=== PATIENT | female | born 1965 | race Caucasian/White ===

== ENCOUNTER 2018-06-01 16:07 | Inpatient (IN) | payer OTHER ==
--- OUTSIDE RECORDS SUMMARY | 2018-06-01 16:15 | XMS REPORT | Clinical Summary ---
:1965 Author Organization [facility] Address [address] [place] [address] Care Team Providers Name Role Phone Lobo Hair MD Primary Care Provider Allergies Active Allergy Reactions Severity Noted Date Comments Hydromorphone (Bulk) Hives 09/13/2015 Infliximab Other (See Comments) 09/13/2015 Sever high blood pressure Medications Not on file Active Problems Problem Noted Date Elevated liver enzymes 09/13/2015 Last Assessment & Plan: Review of laboratory data suggest hepatocellular pattern of liver injury since 2012, also patient reports they have been abnormal before 2012 as well. Comprehensive work up for other etiology of elevated liver enzymes positive for ITZ (1:40) and ASCA (31.9). Negative AMA, ASMA, ceruloplasmin, ferritin, alpha-1 antitrypsin, LKM- 1 and hepattis. Positive ITZ and history of crohn's diseases raises possibility of autoimmune hepatitis. However liver biopsy from 2013 according to patient history showed fatty liver without evidence of AIH. We will request liver biopsy and review in pathology conference. Normal ALP and MRCP are against PSC/PBC. Likely etiology for elevated liver enzyme is combine fatty liver and possible drug induced liver injury. It will be difficult to predict which medication causing DILI. Currently recommend to continue all crohn's medication. We will repeat comprehensive lab work today. Crohn disease 09/13/2015 Last Assessment & Plan: She is under care of Dr. Shah. Currently on Entyvio every 8 week, 6-MP 50 mg daily and Prednisone as needed at the time of flare. Diabetes mellitus type 2, uncomplicated 09/13/2015 Last Assessment & Plan: Diabetes is a risk factor for fatty liver diseases. We discussed strict risk factor modification. Continue current care of plan and PCP follow up. Hypertension 09/13/2015 Last Assessment & Plan: BP elevated. We recommend to follow up with PCP. Immunity status testing 09/13/2015 Last Assessment & Plan: All patients with chronic liver disease, regardless of etiology, should be immunized to prevent hepatitis A and hepatitis B if they are not already immune. We will test for immunity to both viruses - [facility] will follow. Screening for cancer 09/13/2015 Last Assessment & Plan: Colonoscopy 2013, according to patient showed patchy inflammation. Continue follow up with Dr. Shah for screening colonoscopy. Continue well woman exam. Social History Tobacco Use Types Packs/Day Years Used Date Never Assessed Sex Assigned at Date Recorded Not on file Job Start Date Occupation Industry Not on file Not on file Not on file Travel History Travel Start Travel End No recent travel history available. Last Filed Vital Signs Not on file Plan of Treatment Health Maintenance Due Date Last Done Comments INFLUENZA VACCINE 02/23/2018 Results Not on fileafter 05/31/2017 Insurance Payer Benefit Plan / Group Subscriber ID Type Phone Address [employer] OPEN ACCESS HMO NAP xxxxxxxxxx HMO/POS [phone] [id number] (Work)
[2018-06-01] MEDS ORDERED: D50W 25 GM/50 ML SYRINGE IV PRN (16:29)
[2018-06-01] MEDS ORDERED: GLUCAGON 1 MG/VIAL IM PRN (16:29)
[2018-06-01] MEDS: INSULIN -REGULAR HUMAN 50 UNIT/0.5 ML ML SQ SCH ×2 (16:30→21:54)
[2018-06-01 17:12] LABS: Absolute Lymphocytes (CBC) 2.9 K/uL (0.7-4.9); Absolute Monocytes 0.5 K/uL (0.1-1.3); Absolute Neutrophil 7.2 K/uL (1.8-8.0); Basophils % 0.5 % (0-1.3); Eosinophils % 1.6 % (0-4.4); Hematocrit 46.7 % (36.0-45.0); Lymphocytes % 26.9 % (15.3-44.8); MPV 9.2 fL (7.6-11.3); Monocytes % 4.4 % (3.3-12.3); RBC Red Blood Cell Count 5.29 M/uL (3.86-4.86)
[2018-06-01 17:30] LABS: Albumin 4.2 g/dL (3.4-5.0); Bilirubin Total 0.5 mg/dL (0.2-1.0); Magnesium 2.5 mg/dL (1.8-2.4); Potassium 3.9 mmol/L (3.5-5.1); Protein, Total 8.3 g/dL (6.4-8.2)
[2018-06-01 17:33] LABS: Thyroid Stimulating Hormone 5.54 uIU/mL (0.360-3.740)
[2018-06-01] MEDS: NA CHLORIDE 0.9% 1,000 ML IV SCH (17:55)
[2018-06-01] MEDS: FENTANYL CITR 100 MCG/2 ML IV PRN ×2 (18:00→21:54)
[2018-06-01] MEDS: METHYLPREDNISOLONE 125 MG INJ IV SCH ×2 (18:02→23:18)
[2018-06-01] MEDS: PROMETHAZINE 25 MG/ML VIAL IV PRN ×2 (18:05→21:54)
[2018-06-01] MEDS: METRONIDAZOLE 500mg IVPB 500 MG/100 ML BAG IV SCH (18:12)
[2018-06-01] MEDS: ENOXAPARIN 40 MG/0.4 ML SQ SCH (18:18)
[2018-06-01] MEDS: Levofloxacin500mg IV 500 MG/100 ML BAG IV SCH (19:04)
[2018-06-01 19:50] VITALS: BMI 27.3
[2018-06-01] MEDS ORDERED: POTASSIUM 25 MEQ EFFERV TAB PO ONE (19:57)
[2018-06-01] MEDS: METOPROLOL TAR 50 MG TAB PO SCH (23:18)
[2018-06-02 00:04] LABS: Urine Appearance CLEAR; Urine Bilirubin NEGATIVE (NEG); Urine Blood NEGATIVE (NEG); Urine Color YELLOW; Urine Glucose 3+ (NEG); Urine Protein NEGATIVE (NEG); Urine Specific Gravity >=1.030 (1.005-1.030); Urine pH 5.5 (5.0-7.0)
[2018-06-02 00:18] LABS: Urine Microscopic Reflex NO UMIC
[2018-06-02] MEDS: METRONIDAZOLE 500mg IVPB 500 MG/100 ML BAG IV SCH ×3 (00:54→17:19)
[2018-06-02] MEDS: FENTANYL CITR 100 MCG/2 ML IV PRN ×2 (02:33→06:00)
[2018-06-02] MEDS: PROMETHAZINE 25 MG/ML VIAL IV PRN ×5 (02:33→20:42)
[2018-06-02] MEDS: NA CHLORIDE 0.9% 1,000 ML IV SCH ×2 (05:57→19:40)
[2018-06-02] MEDS: METOPROLOL TAR 50 MG TAB PO SCH ×2 (05:59→17:55)
[2018-06-02] MEDS: METHYLPREDNISOLONE 125 MG INJ IV SCH ×3 (06:00→17:54)
[2018-06-02 06:48] LABS: BUN Blood Urea Nitrogen 16 mg/dL (7-18); Bicarbonate 23 mmol/L (21-32); Glucose Level 136 mg/dL (74-106); Potassium 4.1 mmol/L (3.5-5.1); Sodium Level 141 mmol/L (136-145)
[2018-06-02] MEDS: INSULIN -REGULAR HUMAN 50 UNIT/0.5 ML ML SQ SCH ×4 (07:30→21:54)
[2018-06-02] MEDS ORDERED: INFLUENZA VACCINE (for 3y+) 0.5 ML DOSE IMVAC ONE (08:00)
[2018-06-02] MEDS ORDERED: PNEUMOCOCCAL VACCINE 0.5 ML IMVAC ONE (08:00)
[2018-06-02] MEDS: MEPERIDINE HCL 25 MG/0.5 ML IV PRN ×3 (10:08→20:43)
[2018-06-02] MEDS: LOSARTAN POTASSIUM 50 MG TABLET PO SCH (10:09)
--- NOTE | 2018-06-02 15:04 | RAD REPORT ---
EXAM DESCRIPTION: CT - Abdomen Pelvis Wo Contrast - 06/02/2018 2:00 pm CLINICAL HISTORY: Abdominal pain COMPARISON: 2016 TECHNIQUE: Computed axial tomography of the abdomen and pelvis was obtained. IV was not requested. O ral contrast was given. Coronal reconstructions performed. All CT scans are performed using dose optimization technique as appropriate and may include automated exposure control or mA/KV adjustment according to patient size. FINDINGS: The evaluation of solid organs and vessels is limited secondary to the lack of contrast a dministration. Fatty liver. Gallbladder is been removed The Spleen, pancreas, adrenals and kidneys appear grossly normal. There is no evidence of diverticulitis/colitis. The bowel caliber and wall thickness appears normal A tiny umbilical hernia IMPRESSION: No acute abnormality is displayed.
[2018-06-02] MEDS: Levofloxacin500mg IV 500 MG/100 ML BAG IV SCH (17:19)
[2018-06-02] MEDS: ENOXAPARIN 40 MG/0.4 ML SQ SCH (17:19)
[2018-06-02] MEDS: AMITRIPTYLINE 50 MG TAB PO SCH (20:44)
[2018-06-03] MEDS: NA CHLORIDE 0.9% 1,000 ML IV SCH ×3 (00:19→22:20)
[2018-06-03] MEDS: METHYLPREDNISOLONE 125 MG INJ IV SCH ×4 (00:19→17:51)
[2018-06-03] MEDS: METRONIDAZOLE 500mg IVPB 500 MG/100 ML BAG IV SCH ×3 (00:26→17:37)
[2018-06-03] MEDS: PROMETHAZINE 25 MG/ML VIAL IV PRN ×5 (02:51→20:24)
[2018-06-03] MEDS: MEPERIDINE HCL 25 MG/0.5 ML IV PRN ×5 (02:51→20:25)
--- NOTE | 2018-06-03 02:59 | PN ---
Date of Progress Note: 06/02/2018 Subjective: The patient was seen this morning for followup. She is feeling a little bit better as f ar as pain is concerned. No new complaints or problems reported. Physical Examination: Vital Signs: Reviewed. HEENT: Unremarkable. Lungs: Clear to auscultation. Heart: Sounds normal. Abdomen: Soft. Bowel sounds normal. No distention. Tenderness present, but slightly better today than yesterday. Guarding is slightly better today than yesterday. Laboratory Data: Sodium 141, potassium 4.1, chloride 107, bicarb 23, BUN 16, creatinine 0.66, and gl ucose 136. CAT scan of abdomen and pelvis shows no acute abnormality. Impression: 1.Crohn disease, with acute exacerbation. 2.Hypertension. 3.Hyperlipidemia. 4.Diabetes mellitus. 5.Abnormal liver function tests. 6.Depression. Plan: We will continue current medication. Continue IV antibiotic and IV steroid. Follow up with Liseth Shah. I will see her tomorrow for followup. Continue current clear liquid diet. CASPER/MODL Voice ID: [id number] Report ID: [id number]
[2018-06-03] MEDS: METOPROLOL TAR 50 MG TAB PO SCH ×2 (06:18→17:38)
--- NOTE | 2018-06-03 07:35 | HP ---
Date of Admission: 06/01/2018 Chief Complaint: Abdominal pain, vomiting, diarrhea. History Of Present Illness: This is a 53-year-old pleasant female patient who has Crohn disease and from time to time she has exacerbation of this Crohn disease. She is under care of Dr. Shah for and this exacerbation problem started almost 3-4 weeks ago and she has been seeing Dr. Shah for that. Her symptoms include abdominal pain, nausea, vomiting, diarrhea. The patient reports that she has taken antibiotic which is Cipro and metronidazole as well as oral prednisone and unfortunately s he has not improved with any of these medications and treatment provided to her, in fact her symptoms have gotten worse, and in last few days, she has not been able to eat or drink anything and has not been able to keep any medications down in her stomach. Dr. Shah called me today with all this info rmation and requested if we can admit her to hospital directly and I saw her at office and decision w as made to admit her to the hospital. Medications: List reviewed. Review of Systems: GI: As mentioned above. All other systems reviewed and negative. Allergies: SHE IS ALLERGIC TO DILAUDID, MORPHINE AND REMICADE. Past Surgical History: Cholecystectomy. Social History: Negative for smoking or alcohol use. Family History: Significant for hypertension, skin cancer, hyperlipidemia. Past Medical History: Significant for Crohn disease, hypertension, hyperlipidemia, abnormal liver fu nction test, inflammatory arthropathy associated with Crohn disease and type 2 diabetes mellitus. Physical Examination: VITAL SIGNS: When she was admitted, her initial vital signs, temperature 98, pulse 112, respiratory rate 18, blood pressure 171/128. Height 5 feet 7 inches, weight 175 pounds. General: The patient appears acutely ill, not in any distress, appears weaker than normal, but no re spiratory distress. HEENT: Head atraumatic, normocephalic. Conjunctivae nonerythematous. Sclerae white. Mouth, no thr ush or edema noted. Ears/Nose, no mass, lesion, discharge noted. Neck: Supple. No JVD, lymph nodes, bruit, thyromegaly noted. Lungs: Bilateral good equal air entry. Clear to auscultation. No rhonchi. No rales. Heart: Normal heart sounds, no murmur or gallop. Abdomen: Soft. Presence of guarding. No rebound tenderness. Presence of diffuse abdominal tendern ess. Bowel sounds present. No hepatosplenomegaly. No bruit. Extremities: No leg edema. No calf tenderness. Skin: No rash, ulcer, cellulitis. Lymphatics: No lymph node enlargement in neck, supraclavicular, infraclavicular region. Neuro: No focal neurological deficit. Chest: Unremarkable. External Genitalia: Deferred. Rectal: Deferred. Laboratory Data: White count 10.9, hemoglobin 15.8, and platelets of 335. Sodium 141, potassium 3.9 , chloride 107, bicarb 25, BUN 13, creatinine 0.74, glucose 127. SGOT 45, SGPT 110, alkaline phospha tase 116. TSH 5.54. Urinalysis negative. Impression: 1.Crohn disease, acute exacerbation. 2.Hypertension. 3.Abnormal liver function test. 4.Hyperlipidemia. 5.Diabetes mellitus. 6.Depression. Plan: Admit the patient to hospital for further evaluation and management of this problem. The inocente ent is appropriate for inpatient and is expected to spend 2 midnights in hospital. We will continue her home medications per order. Diabetes will be managed with sliding scale insulin. We will leave her on clear liquid diet. Tomorrow, we will get a CAT scan of abdomen done per recommendation from Liseth Shah, and as per my discussion with him, we will go ahead and give IV antibiotics Levaquin and m etronidazole and IV steroid. Pain medication and other symptomatic treatment will be provided per or jose. We will give DVT prophylaxis using Lovenox. We will see her tomorrow for followup. Details an d plan of treatment discussed with her. We will consult Dr. Shah from [facility]. CASPER/MODL Voice ID: [id number]
[2018-06-03] MEDS: INSULIN -REGULAR HUMAN 50 UNIT/0.5 ML ML SQ SCH ×4 (10:25→20:53)
[2018-06-03] MEDS: LOSARTAN POTASSIUM 50 MG TABLET PO SCH (10:26)
[2018-06-03] MEDS: ENOXAPARIN 40 MG/0.4 ML SQ SCH (17:38)
[2018-06-03] MEDS: Levofloxacin500mg IV 500 MG/100 ML BAG IV SCH (17:38)
[2018-06-03] MEDS: AMITRIPTYLINE 50 MG TAB PO SCH (20:24)
[2018-06-04] MEDS: METRONIDAZOLE 500mg IVPB 500 MG/100 ML BAG IV SCH ×3 (00:38→18:09)
[2018-06-04] MEDS: METHYLPREDNISOLONE 125 MG INJ IV SCH ×3 (00:38→11:38)
[2018-06-04] MEDS: MEPERIDINE HCL 25 MG/0.5 ML IV PRN ×2 (01:35→05:41)
[2018-06-04] MEDS: PROMETHAZINE 25 MG/ML VIAL IV PRN ×5 (01:36→20:20)
--- NOTE | 2018-06-04 01:47 | PN ---
Date of Progress Note: 06/03/2018 Subjective: The patient was seen this morning for followup. She is feeling overall better. Abdominal pain is better and pain medication which is Demerol is helping her with her pain and does not have any side effect. She had 2 episodes of vomiting and 2 episodes of diarrhea since I saw her yesterday morning. Denies any bleeding. Objective: Vital Signs: Reviewed. HEENT: Unremarkable. Lungs: Clear to auscultation. Heart: Sounds normal. Abdomen: Soft. Bowel sounds normal. No guarding, rigidity, distention, but presence of tenderness diffuse all over the abdomen which is somewhat better today than yesterday. No rebound tenderness Extremity: No leg edema. Impression: 1. Crohn's disease, with acute exacerbation. 2. Hypertension. 3. Diabetes mellitus. Plan: We will continue current antibiotic, steroid, pain medications per order. The patient is tolerating clear liquid diet well. We will advance it to soft diet. I will see her tomorrow for followup. Possible discharge to go home in next couple of days. Ambulation was encouraged. CASPER/MODTalya Voice ID: [id number] Report ID: [id number] [place]
[2018-06-04] MEDS: METOPROLOL TAR 50 MG TAB PO SCH ×2 (05:31→18:22)
[2018-06-04] MEDS: NA CHLORIDE 0.9% 1,000 ML IV SCH ×3 (05:48→20:20)
[2018-06-04] MEDS: INSULIN -REGULAR HUMAN 50 UNIT/0.5 ML ML SQ SCH ×4 (08:10→20:22)
[2018-06-04] MEDS: LOSARTAN POTASSIUM 50 MG TABLET PO SCH (08:11)
[2018-06-04] MEDS: MEPERIDINE HCL 25 MG/0.5 ML IVP PRN ×3 (10:02→20:22)
[2018-06-04] MEDS: METHYLPRED NA SUC 40 MG in NA CHLORIDE 0.9% 200 ML IV SCH (13:07)
[2018-06-04] MEDS ORDERED: PNEUMOCOCCAL VACCINE 0.5 ML IMVAC ONE (17:00)
[2018-06-04] MEDS ORDERED: INFLUENZA VACCINE (for 3y+) 0.5 ML DOSE IMVAC ONE (17:00)
[2018-06-04] MEDS: Levofloxacin500mg IV 500 MG/100 ML BAG IV SCH (18:09)
[2018-06-04] MEDS: ENOXAPARIN 40 MG/0.4 ML SQ SCH (18:10)
[2018-06-04] MEDS: AMITRIPTYLINE 50 MG TAB PO SCH (20:21)
[2018-06-05] MEDS: METRONIDAZOLE 500mg IVPB 500 MG/100 ML BAG IV SCH ×3 (00:42→17:40)
[2018-06-05] MEDS: MEPERIDINE HCL 25 MG/0.5 ML IVP PRN ×6 (00:48→21:29)
[2018-06-05] MEDS: PROMETHAZINE 25 MG/ML VIAL IV PRN ×6 (00:49→21:27)
--- NOTE | 2018-06-05 01:39 | PN ---
Date of Progress Note: 06/04/2018 Subjective: The patient was seen this morning for followup, and the patient reported that she was fe eling worse today compared to yesterday morning when I saw her. Since I saw her yesterday morning, h er diarrhea got worse. The patient says that she had probably about 10 watery bowel movement and she vomited once. Abdominal pain is still persistent and she would like to increase pain medication as current pain medication is not adequately providing pain relief as she says. No bleeding. Objective: Vital Signs: Reviewed. HEENT: Examination unremarkable. Lungs: Clear to auscultation. Heart: Heart sounds normal. Abdomen: Soft. Bowel sounds normal. No guarding, rigidity, distention. Presence of tenderness not ed all over abdomen, unchanged from yesterday. Extremities: No leg edema. Laboratory Data: Labs reviewed. Impression: 1.Crohn disease, with acute exacerbation. 2.Hypertension. 3.Diabetes mellitus. Plan: The patient will continue to receive antibiotic steroid per order. We will continue to follow with Dr. Shah. I did talk to him and requested to evaluate her for her diarrhea problem, and the patient's stool test results are pending. I will see her tomorrow for followup. I have increased do se of her Demerol and we have 2 different doses 12.5 mg every 4 hours for moderate pain and 25 mg every 4 hours for severe pain. CASPER/MODL Voice ID: [id number] Report ID: [id number]
[2018-06-05] MEDS: METOPROLOL TAR 50 MG TAB PO SCH ×2 (05:08→17:35)
[2018-06-05] MEDS: INSULIN -REGULAR HUMAN 50 UNIT/0.5 ML ML SQ SCH ×4 (09:23→20:39)
[2018-06-05] MEDS: LOSARTAN POTASSIUM 50 MG TABLET PO SCH (09:24)
[2018-06-05] MEDS: METHYLPRED NA SUC 40 MG in NA CHLORIDE 0.9% 200 ML IV SCH (11:53)
[2018-06-05] MEDS: NA CHLORIDE 0.9% 1,000 ML IV SCH ×2 (13:20→20:39)
[2018-06-05] MEDS: ENOXAPARIN 40 MG/0.4 ML SQ SCH (17:37)
[2018-06-05] MEDS: Levofloxacin500mg IV 500 MG/100 ML BAG IV SCH (18:36)
--- NOTE | 2018-06-05 18:39 | P.PN ---
Subjective Date of Service: 06/04/18 Chief Complaint: General abdominal pain, change in bowel habits / diarrhea, N/V , possible CD Subjective: Improving (Less abdominal pain. Able to tolerate some liquids (on admission unable to tolerate any p.o.). Diarrrhea today.) Review of Systems 10-point ROS is otherwise unremarkable Gastrointestinal: Nausea (improved), Abdominal Pain, Diarrhea (increased today) Physical Examination - Vital Signs Temperature: 98.9 F Blood Pressure: 102/76 Pulse: 70 Respirations: 18 Pulse Ox (%): 97 - Physical Exam General: Alert, In no apparent distress, Oriented x3, Cooperative HEENT: Atraumatic, Normocephalic, PERRLA, EOMI Neck: Supple Respiratory: Normal air movement Cardiovascular: Normal pulses Gastrointestinal: Tenderness, Guarding - Studies Microbiology Data (last 24 hrs): 06/01/18 22:05 Clean Catch Urine [place] Count - Final BETWEEN 10,000 & 100,000 CFU/ML 06/01/18 22:05 Clean Catch Urine - Final 06/03/18 15:55 Stool Clostridium difficile Toxin Assay - Final Assessment And Plan - Current Problems (Diagnosis) (1) Nausea & vomiting Current Visit: Yes Status: Acute Comment: Improving though with some more diarrhea today. (2) Diarrhea Current Visit: No Status: Acute (3) Exacerbation of Crohn's disease Onset Date: 10/10/14 Current Visit: No Status: Acute (4) Generalized abdominal pain Current Visit: No Status: Acute - Plan REC: 1) await stool studies 2) decrease steroids to 40 mg in IV drip over 24 hours daily 3) CLs now and as able slowly to FLs to GI soft 4) continue IV antibiotics and IVFs 5) continue prn pain medications and anti-emetics
--- NOTE | 2018-06-05 18:44 | P.PN ---
Subjective Date of Service: 06/05/18 Chief Complaint: General abdominal pain, change in bowel habits / diarrhea, N/V , possible CD Subjective: Improving (Less diarrhea today. Eating Pashto onion soup, sitting in bed. Feels better overall and wants to go home. Less abdominal pain.) Review of Systems 10-point ROS is otherwise unremarkable Gastrointestinal: Nausea (Improved), Abdominal Pain, Diarrhea Physical Examination - Vital Signs Temperature: 98.9 F Blood Pressure: 102/76 Pulse: 70 Respirations: 18 Pulse Ox (%): 97 - Physical Exam General: Alert, In no apparent distress, Oriented x3, Cooperative HEENT: Atraumatic, Normocephalic, PERRLA, EOMI Neck: Supple Respiratory: Normal air movement Cardiovascular: Normal pulses (to slightly fast) Gastrointestinal: Tenderness (less), Guarding (slowly improving ) Neurological: Normal speech, Normal strength at 5/5 x4 extr - Studies Microbiology Data (last 24 hrs): 06/01/18 22:05 Clean Catch Urine [place] Count - Final BETWEEN 10,000 & 100,000 CFU/ML 06/01/18 22:05 Clean Catch Urine - Final 06/03/18 15:55 Stool Clostridium difficile Toxin Assay - Final Assessment And Plan - Current Problems (Diagnosis) (1) Nausea & vomiting Current Visit: Yes Status: Acute Comment: Improving (2) Diarrhea Current Visit: No Status: Acute Comment: Improved. Stool studies negative, though stool culture pending (negative C diff). (3) Exacerbation of Crohn's disease Onset Date: 10/10/14 Current Visit: No Status: Acute (4) Generalized abdominal pain Current Visit: No Status: Acute Comment: Improved. - Plan REC: 1) await stool studies (culture) 2) continue steroids at 40 mg in IV drip over 24 hours daily 3) GI soft diet 4) continue IV antibiotics and IVFs 5) continue prn pain medications and anti-emetics 6) possible discharge tomorrow, with continued outpatient Entyvio (need drug trough level)
[2018-06-05] MEDS: AMITRIPTYLINE 50 MG TAB PO SCH (20:39)
[2018-06-06] MEDS: METRONIDAZOLE 500mg IVPB 500 MG/100 ML BAG IV SCH ×3 (00:05→17:37)
[2018-06-06 00:17] VITALS: O2SAT 94
[2018-06-06] MEDS: MEPERIDINE HCL 25 MG/0.5 ML IVP PRN ×6 (01:21→21:35)
[2018-06-06] MEDS: PROMETHAZINE 25 MG/ML VIAL IV PRN ×6 (01:22→21:34)
[2018-06-06] MEDS: METOPROLOL TAR 50 MG TAB PO SCH ×2 (05:30→17:50)
[2018-06-06 06:33] LABS: Absolute Lymphocytes (CBC) 1.9 K/uL (0.7-4.9); Absolute Monocytes 0.4 K/uL (0.1-1.3); Absolute Neutrophil 5.7 K/uL (1.8-8.0); Basophils % 0.1 % (0-1.3); Eosinophils % 0.7 % (0-4.4); Hematocrit 40.1 % (36.0-45.0); Lymphocytes % 23.4 % (15.3-44.8); Monocytes % 5.5 % (3.3-12.3); RBC Red Blood Cell Count 4.48 M/uL (3.86-4.86)
[2018-06-06 06:48] LABS: ALT/SGPT 113 U/L (12-78); AST/SGOT 63 U/L (15-37); Albumin 3.2 g/dL (3.4-5.0); Alkaline Phosphatase 81 U/L (45-117); BUN Blood Urea Nitrogen 15 mg/dL (7-18); Bicarbonate 29 mmol/L (21-32); Bilirubin Total 0.4 mg/dL (0.2-1.0); Glucose Level 168 mg/dL (74-106); Magnesium 2.4 mg/dL (1.8-2.4); Phosphorus 2.7 mg/dL (2.5-4.9); Protein, Total 6.2 g/dL (6.4-8.2); Sodium Level 142 mmol/L (136-145)
[2018-06-06] MEDS: INSULIN -REGULAR HUMAN 50 UNIT/0.5 ML ML SQ SCH ×4 (09:02→21:26)
[2018-06-06] MEDS: LOSARTAN POTASSIUM 50 MG TABLET PO SCH (10:03)
[2018-06-06] MEDS: METHYLPRED NA SUC 40 MG in NA CHLORIDE 0.9% 200 ML IV SCH (12:23)
[2018-06-06] MEDS ORDERED: METHYLPREDNISOLONE 125 MG INJ IV ONE (14:25)
--- NOTE | 2018-06-06 14:25 | P.PN ---
Subjective Date of Service: 06/06/18 Chief Complaint: General abdominal pain, change in bowel habits / diarrhea, N/V , possible CD Subjective: Worsening (Ate Martiniquais onion soup last night but with not only the liquid but the slivers of onions and did not chew them well. She understands to avoid fibrous foods or chew very well into a puree before swallowing. Stool culture is negative, with only O&P pending which is doubtful.) Review of Systems 10-point ROS is otherwise unremarkable Gastrointestinal: Nausea, Abdominal Pain Physical Examination - Vital Signs Temperature: 97.6 F Blood Pressure: 115/72 Pulse: 70 Respirations: 18 Pulse Ox (%): 94 - Physical Exam General: Alert, Oriented x3, Cooperative, Mild distress HEENT: Atraumatic, Normocephalic, PERRLA, EOMI, Sclerae nonicteric Neck: Supple Respiratory: Normal air movement Cardiovascular: Normal pulses Gastrointestinal: No rebound, Tenderness, Guarding Neurological: Normal speech, Normal strength at 5/5 x4 extr - Studies Laboratory Data (last 24 hrs) 06/06/18 05:49: Sodium 142, Potassium 4.0, BUN 15, Creatinine 0.59, Glucose 168 H, Phosphorus 2.7, Magnesium 2.4, Total Bilirubin 0.4, AST 63 H, ALT 113 H, Alkaline Phosphatase 81 06/06/18 05:49: WBC 8.2 D, Hgb 13.8, Hct 40.1, Plt Count 253 D Microbiology Data (last 24 hrs): 06/03/18 15:55 Stool Culture & Sensitivity - Final 06/01/18 22:05 Clean Catch Urine [place] Count - Final BETWEEN 10,000 & 100,000 CFU/ML 06/01/18 22:05 Clean Catch Urine - Final Assessment And Plan - Current Problems (Diagnosis) (1) Nausea & vomiting Current Visit: Yes Status: Acute Comment: Improving (2) Diarrhea Current Visit: No Status: Acute Comment: Improved. Stool studies negative, though stool culture pending (negative C diff). (3) Exacerbation of Crohn's disease Onset Date: 10/10/14 Current Visit: No Status: Acute Comment: Set back today from not chewing onions well from last night. (4) Generalized abdominal pain Current Visit: No Status: Acute Comment: Improved. - Plan REC: 1) await stool studies (culture) 2) continue steroids at 40 mg in IV drip over 24 hours daily & today add 60 mg dose X1 3) GI soft diet (no fibrous foods) 4) continue IV antibiotics and IVFs 5) continue prn pain medications and anti-emetics 6) possible discharge tomorrow, with continued outpatient Entyvio (need drug trough level)
--- NOTE | 2018-06-06 16:26 | PN ---
Date of Progress Note: 06/06/2018 Subjective: The patient was seen this morning for followup, and she informed me that she was continu ing to get better up until lunch time yesterday, after that started to feel worse with multiple episo clarisse of vomiting. Denies any hematemesis. Diarrhea has improved. Abdominal pain remains unchanged. Objective: Vital Signs: Reviewed. HEENT: Examination unremarkable. Lungs: Clear to auscultation. Heart: Heart sounds normal. Abdomen: Soft. Bowel sounds present with some tenderness, diffuse, unchanged. No rebound tendernes s. EXTREMITIES: No leg edema. Laboratory Data: White count 8.2, hemoglobin 13.8, platelets 253. Sodium 142, potassium 4, chloride 108, bicarb 29, BUN 15, creatinine 0.59, glucose 168, SGOT 63, SGPT 113. Impression: 1.Crohn disease, with acute exacerbation. 2.Hypertension. 3.Type 2 diabetes mellitus. 4.Abnormal liver function tests. Plan: We will go ahead and continue current medical management, IV steroid, IV antibiotic, symptomat ic treatment for nausea and vomiting, and IV fluid. Stool C diff is negative. Stool culture is stil l pending, and we will continue to follow with Dr. Shah. Details were discussed with the patient. CASPER/MODL Voice ID: [id number] Report ID: [id number]
--- NOTE | 2018-06-06 16:26 | PN ---
Date of Progress Note: 06/05/2018 Subjective: The patient was seen this morning for followup. She continues to have abdominal pain. Some nausea, vomiting, and diarrhea. Overall, that is slowly improving. She is tolerating diet fair ly okay. Objective: Vital Signs: Reviewed. HEENT: Unremarkable. Lungs: Clear to auscultation. Heart: Sounds normal. Abdomen: Soft. Bowel sounds present with some tenderness diffusely scattered over abdomen, unchange d from yesterday. No distention. Extremities: No leg edema. Impression: 1.Crohn disease, with acute exacerbation. 2.Hypertension. 3.Type 2 diabetes mellitus. Plan: We will go ahead and continue current IV fluid, diet order, IV antibiotic, steroids, etc. Con tinue to follow with Dr. Shah. Stool C. diff negative. Stool culture pending. CASPER/MODL Voice ID: [id number] Report ID: [id number]
[2018-06-06] MEDS ORDERED: FENTANYL 75 MCG/PATCH TD SCH (17:00)
[2018-06-06] MEDS: Levofloxacin500mg IV 500 MG/100 ML BAG IV SCH (17:43)
[2018-06-06] MEDS: ENOXAPARIN 40 MG/0.4 ML SQ SCH (17:49)
[2018-06-06] MEDS: NA CHLORIDE 0.9% 1,000 ML IV SCH (18:01)
[2018-06-06] MEDS: AMITRIPTYLINE 50 MG TAB PO SCH (21:25)
[2018-06-07] MEDS: METRONIDAZOLE 500mg IVPB 500 MG/100 ML BAG IV SCH ×3 (01:00→16:38)
[2018-06-07] MEDS: PROMETHAZINE 25 MG/ML VIAL IV PRN ×3 (02:12→22:36)
[2018-06-07] MEDS: MEPERIDINE HCL 25 MG/0.5 ML IVP PRN ×4 (02:12→22:37)
[2018-06-07] MEDS: METOPROLOL TAR 50 MG TAB PO SCH ×2 (05:23→18:39)
[2018-06-07] MEDS: INSULIN -REGULAR HUMAN 50 UNIT/0.5 ML ML SQ SCH ×4 (08:38→21:09)
[2018-06-07] MEDS: LOSARTAN POTASSIUM 50 MG TABLET PO SCH (08:42)
[2018-06-07] MEDS: NA CHLORIDE 0.9% 1,000 ML IV SCH ×2 (11:27→19:40)
[2018-06-07] MEDS ORDERED: ONDANSETRON 4 MG (ODT) TAB PO PRN (12:04)
[2018-06-07] MEDS ORDERED: MEPERIDINE HCL 50 MG/ML AMP IM ONE (13:10)
[2018-06-07] MEDS ORDERED: PROMETHAZINE 25 MG/ML VIAL IM ONE (13:11)
--- NOTE | 2018-06-07 14:49 | RAD REPORT ---
EXAM DESCRIPTION: RAD - Abdomen Acute Series - 06/07/2018 2:31 pm CLINICAL HISTORY: Abdominal pain. COMPARISON: None. FINDINGS: Lungs are clear. Heart size and vessels are normal. No pleural effusion, pneumothorax or o ther acute cardiopulmonary process seen. Bowel gas pattern is nonspecific. No bowel obstruction, free air or other acute findings. No suspicio us calcifications. Cholecystectomy clips. No other suspicious for significant findings. IMPRESSION: Negative acute abdomen series.
[2018-06-07] MEDS: METHYLPRED NA SUC 40 MG in NA CHLORIDE 0.9% 200 ML IV SCH (15:53)
--- NOTE | 2018-06-07 16:06 | PN ---
Date of Progress Note: 06/07/2018 Subjective: The patient was seen this morning for followup. Her was with her at bedside. S he is feeling much better as of yesterday afternoon, and that is after Dr. Shah gave her more IV st eroid. Overall, her diarrhea is better. Nausea and vomiting are better. Abdominal pain is better. She still had some diarrhea today, but no vomiting today. She is ambulating well. Objective: Vital Signs: Reviewed. HEENT: Unremarkable. Lungs: Clear to auscultation. Heart: Heart sounds normal. Abdomen: Soft. Bowel sounds normal. No guarding, rigidity, or distention. Mild tenderness present , scattered over abdomen. Overall, much better. Extremities: No leg edema. Laboratory Data: Stool C. diff and stool culture negative. Impression: 1.Crohn disease with acute exacerbation. 2.Hypertension. 3.Diabetes mellitus. 4.Abnormal liver function test. Plan: We will continue current medications, antibiotics, and steroids. The patient is doing better as of yesterday afternoon. We will keep her in the hospital for 1 more day, which is today. If she continues to show improvement today and condition remains stable, then the plan is to discharge her to go home tomorrow. The patient understands and agrees with this plan. CASPER/MODL Voice ID: [id number] Report ID: [id number]
[2018-06-07] MEDS: ENOXAPARIN 40 MG/0.4 ML SQ SCH (16:42)
[2018-06-07] MEDS: Levofloxacin500mg IV 500 MG/100 ML BAG IV SCH (18:10)
[2018-06-07] MEDS: AMITRIPTYLINE 50 MG TAB PO SCH (21:10)
[2018-06-08] MEDS: METRONIDAZOLE 500mg IVPB 500 MG/100 ML BAG IV SCH (01:50)
[2018-06-08] MEDS: MEPERIDINE HCL 25 MG/0.5 ML IVP PRN (02:28)
[2018-06-08] MEDS: PROMETHAZINE 25 MG/ML VIAL IV PRN (02:28)
[2018-06-08] MEDS: METOPROLOL TAR 50 MG TAB PO SCH (06:07)
[2018-06-08 08:33] VITALS: BP 136/80; TEMP 97.1
[2018-06-09] MEDS ORDERED: FENTANYL 75 MCG/PATCH TD SCH (09:00)
--- NOTE | 2018-06-09 19:05 | DS ---
Date of Discharge: 06/08/2018 Disposition: Discharged to go home. Physical Examination: HEENT: Unremarkable. Lungs: Clear to auscultation. Heart: Sounds normal. Abdomen: Soft. Bowel sounds normal. No guarding, rigidity, tenderness, distention. Extremities: No leg edema. Hospital Course: A 53-year-old female patient who was admitted to the hospital with acute exacerbati on of Crohn disease. Please see dictated H and P for more information. 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 When but she was not improving to track, her condition got worse, so Liseth Jung contacted me requesting admission to the hospital. The patient was asked to come see me at office. After she was evaluated, she was admitted to the hospital. When she was admitted to the [facility], we started her on IV antibiotics and IV steroids, IV fluid and initially clear liquid flow was started. Her condition did not improve as well as expected. Stool was ordered for C. diff and cult ure and it came back negative. The patient had vomiting and diarrhea from time to time. Dr. Shah from GI was consulted and he continued to follow up on the patient over the weekend. He decided to g elvin her some extra steroids and eventually the patient's condition started getting better. In last 2 4-36 hours, she is feeling much better. Diarrhea and vomiting are much better. She had only 1 episo de of vomiting in last 24 hour. No diarrhea. She is tolerating diet very well. This morning she wa s feeling much better and informed me that she is ready to go home. Medically, she is stable for dis charge. I did talk to Dr. Shah. He wants to continue with 1 week of antibiotics and prednisone 40 mg daily, and he will see her in 1 week. At that time, he will start reducing prednisone by 10 mg e very week. The patient was advised to continue all other previous home medication as she was taking before this admission. Final Diagnoses: 1.Crohn disease with acute exacerbation. 2.Hypertension. 3.Hyperlipidemia. 4.Diabetes mellitus. 5.Depression. 6.Abnormal liver function tests. Laboratory Data: Labs done during this hospitalization, initial white count 10.9, hemoglobin 15.8, p latelets 335. Initial sodium 141, potassium 3.9, chloride 107, bicarb 25, BUN 13, creatinine 0.74, g lucose 127. SGOT 45, SGPT 110, alkaline phosphatase 116. TSH 5.54. CAT scan of the abdomen done during this hospitalization was unremarkable. Discharge Medications And Instructions: 1.Continue all prior home medications. 2.Take Cipro 500 mg b.i.d. for 1 week, metronidazole 500 mg p.o. 3 times a day for 1 week. 3.Take prednisone 10 mg, the patient to take 4 tablets p.o. daily. Take it with food. 4.Follow up with Dr. Shah in 1 week and at that time, he will inform you how to lower prednisone d ose on a weekly basis, so please make sure to discuss this with him at time of office visit. 5.Follow up at my office per scheduled appointment. CASPER/DAVE Voice ID: [id number] Report ID: [id number]
== END 2018-06-08 09:00 | disposition home or self-care (01) | DRG 387 ==
LOC: 4TH 16:11
PROVIDERS: ADMIT Internal Medicine; ATTEND Internal Medicine
DX: K50.918 Crohn's disease, unspecified, with other complication (principal); E78.5 Hyperlipidemia, unspecified; R94.5 Abnormal results of liver function studies; F32.9 Major depressive disorder, single episode, unspecified; E11.9 Type 2 diabetes mellitus without complications; I10 Essential (primary) hypertension; Z88.5 Allergy status to narcotic agent; Z88.8 Allergy status to other drugs, medicaments and biological substances; R11.2 Nausea with vomiting, unspecified; R19.7 Diarrhea, unspecified
CPT/HCPCS: 36415; 74022; 74176; 80048; 80053; 81003; 82274; 82962; 83735; 84100; 84439; 84443; 85025; 87045; 87046; 87086; 87088; 87177; 87209; 87493; 90670; G0008; G0009; J1650; J2175; J2550; J2920; J2930; J3010; J7030; Q2035

== ENCOUNTER 2018-06-13 19:34 | Emergency (ER) | payer OTHER ==
--- OUTSIDE RECORDS SUMMARY | 2018-06-13 19:37 | XMS REPORT | Clinical Summary ---
:1965 Author Organization [facility] Address [address] [place] [address] Care Team Providers Name Role Phone Lobo [...] test for immunity to both viruses - [facility] recommendations will follow. Screening for cancer 09/13/2015 [...] INFLUENZA VACCINE 02/23/2018 Results Not on fileafter 06/12/2017 Insurance Payer Benefit Plan / Group Subscriber ID Type Phone Address [employer] - [employer] OPEN ACCESS HMO NAP xxxxxxxxxx HMO/POS [phone] [id number] (Work)
[2018-06-13 20:20] LABS: Absolute Lymphocytes (CBC) 1.8 K/uL (0.7-4.9); Absolute Monocytes 0.7 K/uL (0.1-1.3); Absolute Neutrophil 13.3 K/uL (1.8-8.0); Basophils % 0.4 % (0-1.3); Eosinophils % 0.3 % (0-4.4); Hematocrit 48.1 % (36.0-45.0); Lymphocytes % 11.3 % (15.3-44.8); MPV 9.7 fL (7.6-11.3); Monocytes % 4.1 % (3.3-12.3)
[2018-06-13 20:58] LABS: ALT/SGPT 149 U/L (12-78); AST/SGOT 37 U/L (15-37); Albumin 3.7 g/dL (3.4-5.0); Alkaline Phosphatase 126 U/L (45-117); BUN Blood Urea Nitrogen 16 mg/dL (7-18); Bicarbonate 27 mmol/L (21-32); Bilirubin Direct < 0.1 mg/dL (0-0.2); Bilirubin Total 0.3 mg/dL (0.2-1.0); Glucose Level 259 mg/dL (74-106); Protein, Total 7.8 g/dL (6.4-8.2); Sodium Level 139 mmol/L (136-145)
[2018-06-13] MEDS ORDERED: NA CHLORIDE 0.9% 1,000 ML ONE (21:02)
--- NOTE | 2018-06-13 21:51 | ER ---
Nurse's Notes [facility] Name: Wayne Campos Age: 53 yrs Sex: Female : 1965 Arrival Date: 06/13/2018 Time: 19:37 Bed 30 Private MD: oLbo Hair Diagnosis: Hyperglycemia, unspecified;Adverse effect of steroids Presentation: 06/13 20:08 Presenting complaint: states: pt was admitted to the hospital for a Crohn's bb flare up x 1 week she was given antibiotics then developed C-diff then that was under control she started having abdominal pain again and was put on high dose steroids which she is currently weaning off of but now her blood sugar is elevated over 400 at home she administered insulin x 2 for a total of 25 units but most concerning is pt's labile mood with crying. Spouse states this is very abnormal for the pt and pt states "I just do not feel right". Transition of care: patient was not received from another setting of care. Onset of symptoms was June 13, 2018. Risk Assessment: Do you want to hurt yourself or someone else? Patient reports no desire to harm self or others. Initial Sepsis Screen: Does the patient meet any 2 criteria? No. Patient's initial sepsis screen is negative. Does the patient have a suspected source of infection? No. Patient's initial sepsis screen is negative. Care prior to arrival: None. 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 - Hysterectomy bb Historical: - Allergies: 20:13 hydromorphone HCl; bb 20:13 Infliximab; bb 20:13 Morphine; bb - Home Meds: 20:32 Cipro 500 mg Oral tab 1 tab every 12 hours [Active]; Flagyl 500 mg Oral tab 1 tab 3 bb times per day [Active]; Prednisone 4 mg Oral once daily [Active]; amitriptyline 100 mg Oral tab 1 tab once daily [Active]; Farxiga 10 mg oral tab 1 tab once daily [Active]; insulin asparte sliding scale [Active]; Tresiba FlexTouch U-100 50 units SQ daily subcutaneous inpn [Active]; losartan 50 mg oral tab 1 tab once daily [Active]; mercaptopurine 50 mg oral tab once daily [Active]; metoprolol tartrate 100 mg Oral tab 1 tab 2 times per day [Active]; promethazine 25 mg Oral tab 1 tab every 4 hours [Active]; Entyvio 300 mg intravenous solr every 8 wks [Active]; tramadol 50 mg Oral tab 1 tab every 4 hours [Active]; - PMHx: 20:13 Hypertension; Diabetes - IDDM; Crohn's disease; bb - PSHx: 20:13 Hysterectomy; bb - Immunization history:: Adult Immunizations up to date. - Social history:: Smoking status: Patient/guardian denies using tobacco. - Ebola Screening: : No symptoms or risks identified at this time. Screenin:15 Abuse screen: Denies threats or abuse. Denies injuries from another. Nutritional mg2 screening: No deficits noted. Tuberculosis screening: No symptoms or risk factors identified. Fall Risk IV access (20 points). Assessment: 20:15 General: Appears in no apparent distress. comfortable, Behavior is calm, cooperative. mg2 Pain: Denies pain. Neuro: Level of Consciousness is awake, alert, obeys commands, Oriented to person, place, time, situation. Cardiovascular: Capillary refill < 3 seconds Patient's skin is warm and dry. Respiratory: Airway is patent Respiratory effort is even, unlabored, Respiratory pattern is regular, symmetrical. GI: No signs and/or symptoms were reported involving the gastrointestinal system. : No signs and/or symptoms were reported regarding the genitourinary system. EENT: No signs and/or symptoms were reported regarding the EENT system. Derm: Skin is intact, is healthy with good turgor, Skin is pink, warm \\T\\ dry. normal. Musculoskeletal: No signs and/or symptoms reported regarding the musculoskeletal system. Vital Signs: 20:13 BP 159 / 96; Pulse 66; Resp 18 S; Temp 98.2(O); Pulse Ox 95% on R/A; Weight 81.65 kg bb (R); Height 5 ft. 7 in. (170.18 cm) (R); 21:14 BP 134 / 94; Pulse 59; Resp 18; Pulse Ox 95% on R/A; Pain 0/10; mg2 20:13 Body Mass Index 28.19 (81.65 kg, 170.18 cm) bb ED Course: 19:37 Patient arrived in ED. mr 19:37 Lobo Hair MD is Private Physician. mr 19:56 De Dao PA is PHCP. jr8 19:56 Dominguez Franz MD is Attending Physician. jr8 19:57 Jairo Maciel, RN is Primary Nurse. mg2 20:12 Triage completed. bb 20:13 Arm band placed on Patient placed in an exam room, on a stretcher, on pulse oximetry. bb Family accompanied patient. 20:15 Patient has correct armband on for positive identification. mg2 20:15 No provider procedures requiring assistance completed. Inserted saline lock: 22 gauge mg2 in right hand, using aseptic technique. Blood collected. 21:48 Lobo Hair MD is Referral Physician. jr8 22:14 IV discontinued, intact, bleeding controlled, No redness/swelling at site. Pressure mg2 dressing applied. Administered Medications: 20:47 Drug: NS 0.9% 1000 ml Route: IV; Rate: 1000 ml; Site: right hand; mg2 22:15 Follow up: Response: No adverse reaction; IV Status: Completed infusion mg2 Point of Care Testing: Blood Glucose: 20:06 Blood Glucose: 259 mg/dL; mg2 Ranges: Outcome: 21:49 Discharge ordered by . jr8 22:14 Discharged to home ambulatory, with family. mg2 22:14 Condition: stable 22:14 Discharge instructions given to patient, family, Instructed on discharge instructions, follow up and referral plans. Demonstrated understanding of instructions, follow-up care. 22:15 Patient left the ED. mg2 Signatures: Diaz Malou HardyAndree, RN RN bb De Dao PA PA jr8 Jairo Maciel, JOSE MANUEL RN mg2
--- NOTE | 2018-06-13 21:52 | EDPHYS ---
Physician Documentation [facility] Name: Wayne Campos Age: 53 yrs Sex: Female : 1965 Arrival Date: 06/13/2018 Time: 19:37 Bed 30 Private MD: Lobo Hair ED Physician Dominguez Franz HPI: 06/13 20:54 This 53 yrs old Female presents to ER via Ambulatory with complaints of High jr8 Blood Sugar. 20:54 Current symptoms: In the emergency department the patient's symptoms have improved. It jr8 is unknown whether or not the patient has had similar symptoms in the past. The patient has been recently seen by a physician:. Patient recently treated with high dosed steroids and antibiotics for Crohns' disease. Stated that she is in the misted of weaning off the steroids but has been emotionally distraught and has had increase in hunger and thirst. Stated that her blood glucose has been markedly elevated. Has been titrating her insulin which is improving it but called her PCP who wanted her to be evaluated to insure electrolytes and bicarb were ok . 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 bb Historical: - Allergies: 20:13 hydromorphone HCl; bb 20:13 Infliximab; bb 20:13 Morphine; bb - Home Meds: 20:32 Cipro 500 mg Oral tab 1 tab every 12 hours [Active]; Flagyl 500 mg Oral tab 1 tab 3 bb times per day [Active]; Prednisone 4 mg Oral once daily [Active]; amitriptyline 100 mg Oral tab 1 tab once daily [Active]; Farxiga 10 mg oral tab 1 tab once daily [Active]; insulin asparte sliding scale [Active]; Tresiba FlexTouch U-100 50 units SQ daily subcutaneous inpn [Active]; losartan 50 mg oral tab 1 tab once daily [Active]; mercaptopurine 50 mg oral tab once daily [Active]; metoprolol tartrate 100 mg Oral tab 1 tab 2 times per day [Active]; promethazine 25 mg Oral tab 1 tab every 4 hours [Active]; Entyvio 300 mg intravenous solr every 8 wks [Active]; tramadol 50 mg Oral tab 1 tab every 4 hours [Active]; - PMHx: 20:13 Hypertension; Diabetes - IDDM; Crohn's disease; bb - PSHx: 20:13 Hysterectomy; bb - Immunization history:: Adult Immunizations up to date. - Social history:: Smoking status: Patient/guardian denies using tobacco. - Ebola Screening: : No symptoms or risks identified at this time. ROS: 20:54 Eyes: Negative for injury, pain, redness, and discharge, ENT: Negative for injury, jr8 pain, and discharge, Neck: Negative for injury, pain, and swelling, Cardiovascular: Negative for chest pain, palpitations, and edema, Respiratory: Negative for shortness of breath, cough, wheezing, and pleuritic chest pain, Abdomen/GI: Negative for abdominal pain, nausea, vomiting, diarrhea, and constipation, Back: Negative for injury and pain, MS/Extremity: Negative for injury and deformity, Skin: Negative for injury, rash, and discoloration, Neuro: Negative for headache, weakness, numbness, tingling, and seizure. Exam: 20:54 Eyes: Pupils equal round and reactive to light, extra-ocular motions intact. Lids and jr8 lashes normal. Conjunctiva and sclera are non-icteric and not injected. Cornea within normal limits. Periorbital areas with no swelling, redness, or edema. ENT: Nares patent. No nasal discharge, no septal abnormalities noted. Tympanic membranes are normal and external auditory canals are clear. Oropharynx with no redness, swelling, or masses, exudates, or evidence of obstruction, uvula midline. Mucous membranes moist. Neck: Trachea midline, no thyromegaly or masses palpated, and no cervical lymphadenopathy. Supple, full range of motion without nuchal rigidity, or vertebral point tenderness. No Meningismus. Cardiovascular: Regular rate and rhythm with a normal S1 and S2. No gallops, murmurs, or rubs. Normal PMI, no JVD. No pulse deficits. Respiratory: Lungs have equal breath sounds bilaterally, clear to auscultation and percussion. No rales, rhonchi or wheezes noted. No increased work of breathing, no retractions or nasal flaring. Abdomen/GI: Soft, non-tender, with normal bowel sounds. No distension or tympany. No guarding or rebound. No evidence of tenderness throughout. Back: No spinal tenderness. No costovertebral tenderness. Full range of motion. Skin: Warm, dry with normal turgor. Normal color with no rashes, no lesions, and no evidence of cellulitis. MS/ Extremity: Pulses equal, no cyanosis. Neurovascular intact. Full, normal range of motion. Neuro: Awake and alert, GCS 15, oriented to person, place, time, and situation. Cranial nerves II-XII grossly intact. Motor strength 5/5 in all extremities. Sensory grossly intact. Cerebellar exam normal. Normal gait. 20:54 Constitutional: The patient appears alert, awake, emotional Vital Signs: 20:13 BP 159 / 96; Pulse 66; Resp 18 S; Temp 98.2(O); Pulse Ox 95% on R/A; Weight 81.65 kg bb (R); Height 5 ft. 7 in. (170.18 cm) (R); 21:14 BP 134 / 94; Pulse 59; Resp 18; Pulse Ox 95% on R/A; Pain 0/10; mg2 20:13 Body Mass Index 28.19 (81.65 kg, 170.18 cm) bb MDM: 20:03 Patient medically screened. jr8 21:22 Data reviewed: vital signs, nurses notes, lab test result(s), and as a result, I will jr8 discharge patient. Data interpreted: Pulse oximetry: on room air is 95 %. Interpretation: normal. Counseling: I had a detailed discussion with the patient and/or guardian regarding: the historical points, exam findings, and any diagnostic results supporting the discharge/admit diagnosis, lab results, the need for outpatient follow up, a family practitioner, to return to the emergency department if symptoms worsen or persist or if there are any questions or concerns that arise at home. ED course: Bicarb normal. Blood glucose within acceptable level. Patient given 1000 ml of fluids. No other acute findings. Will need to f/u with PCP . 06/13 20:03 Order name: Basic Metabolic Panel; Complete Time: 21:00 06/13 20:03 Order name: CBC with Diff; Complete Time: 20:30 06/13 20:03 Order name: Hepatic Function; Complete Time: 21:06/13 20:03 Order name: IV Saline Lock; Complete Time: 20:14 8 06/13 20:03 Order name: Labs collected and sent; Complete Time: 20:14 06/13 20:04 Order name: Glucose Level; Complete Time: 20:06 jr8 Administered Medications: 20:47 Drug: NS 0.9% 1000 ml Route: IV; Rate: 1000 ml; Site: right hand; mg2 22:15 Follow up: Response: No adverse reaction; IV Status: Completed infusion mg2 Point of Care Testing: Blood Glucose: 20:06 Blood Glucose: 259 mg/dL; mg2 Ranges: Critical Glucose Levels:Adult <50 mg/dl or >400 mg/dl <40 mg/dl or >180 mg/dl Disposition: 06/14 03:40 Co-signature as Attending Physician, Dominguez Franz MD Available for consultation at [facility] all times . Disposition: 06/13/18 21:49 Discharged to Home. Impression: Hyperglycemia, unspecified, Adverse effect of steroids . - Condition is Stable. - Discharge Instructions: Hyperglycemia, Blood Glucose Monitoring, Adult. - Medication Reconciliation Form, Thank You Letter, Antibiotic Education, Prescription Opioid Use form. - Follow up: Lobo Hair MD; When: 2 - 3 days; Reason: Recheck today's complaints, Continuance of care, Re-evaluation by your physician. - Problem is new. - Symptoms have improved. Signatures: Dispatcher [employer] EDMS Andree Hardy RN RN bb De Dao PA PA jr8 Dominguez Franz MD MD ps1 Jairo Maciel RN RN mg2 Corrections: (The following items were deleted from the chart) 06/13 22:15 21:49 06/13/2018 21:49 Discharged to Home. Impression: Hyperglycemia, unspecified; mg2 Adverse effect of steroids . Condition is Stable. Forms are Medication Reconciliation Form, Thank You Letter, Antibiotic Education, Prescription Opioid Use. Follow up: Lobo Hair; When: 2 - 3 days; Reason: Recheck today's complaints, Continuance of care, Re-evaluation by your physician. Problem is new. Symptoms have improved. jr8
[2018-06-13 22:31] VITALS: TEMP 98.2; O2SAT 95
[2018-06-13 22:35] VITALS: BP 134/94
== END 2018-06-13 22:15 | disposition home or self-care (01) ==
LOC: ER 19:34
DX: R73.9 Hyperglycemia, unspecified (principal); T38.0X5A Adverse effect of glucocorticoids and synthetic analogues, initial encounter; I10 Essential (primary) hypertension; K50.90 Crohn's disease, unspecified, without complications; Z88.8 Allergy status to other drugs, medicaments and biological substances; Z88.6 Allergy status to analgesic agent
CPT/HCPCS: 36415; 80048; 80076; 82962; 85025; J7030

== ENCOUNTER 2019-02-05 10:54 | Inpatient (IN) | payer OTHER ==
--- OUTSIDE RECORDS SUMMARY | 2019-02-05 11:25 | XMS REPORT | Clinical Summary ---
:1965 Author Organization [facility] Address [address] [address] Care Team Providers Name Role Phone Lobo Hiar MD Primary Care Provider Allergies Active Allergy [...] test for immunity to both viruses - [facility] recommendations will follow. Screening for cancer 09/13/2015 [...] INFLUENZA VACCINE 02/23/2018 Results Not on fileafter 02/04/2018 Insurance Payer Benefit Plan / Group Subscriber ID Type Phone Address [employer] - [employer] C[employer] OPEN ACCESS HMO NAP xxxxxxxxxx HMO/POS [phone] (Work)
[2019-02-05] MEDS ORDERED: FENTANYL 75 MCG/PATCH TD SCH (12:00)
[2019-02-05 12:05] VITALS: BMI 26.7
[2019-02-05 12:38] LABS: Absolute Lymphocytes (CBC) 3.5 K/uL (0.7-4.9); Basophils % 0.6 % (0-1.3); Hematocrit 43.5 % (36.0-45.0); Lymphocytes % 34.1 % (15.3-44.8); MPV 9.5 fL (7.6-11.3); RBC Red Blood Cell Count 5.04 M/uL (3.86-4.86)
[2019-02-05 12:40] LABS: Protime INR 0.97
[2019-02-05 12:53] LABS: ALT/SGPT 96 U/L (12-78); AST/SGOT 44 U/L (15-37); Albumin 3.9 g/dL (3.4-5.0); Alkaline Phosphatase 133 U/L (45-117); BUN Blood Urea Nitrogen 17 mg/dL (7-18); Bicarbonate 25 mmol/L (21-32); Bilirubin Direct < 0.1 mg/dL (0-0.2); Bilirubin Total 0.3 mg/dL (0.2-1.0); Glucose Level 88 mg/dL (74-106); Potassium 3.5 mmol/L (3.5-5.1); Protein, Total 7.8 g/dL (6.4-8.2); Sodium Level 141 mmol/L (136-145)
[2019-02-05] MEDS: Ringers Lactate 1,000 ML IV SCH ×2 (12:59→20:32)
[2019-02-05] MEDS: MEPERIDINE HCL 50 MG/ML IV PRN ×2 (12:59→17:59)
[2019-02-05] MEDS: PROMETHAZINE 25 MG/ML VIAL IV PRN ×2 (13:00→14:18)
[2019-02-05] MEDS: ONDANSETRON 4 MG/2 ML VIAL IV PRN (13:05)
--- NOTE | 2019-02-05 15:21 | RAD REPORT ---
EXAM DESCRIPTION: CTAbdomen Pelvis W Contrast - 02/05/2019 3:08 pm CLINICAL HISTORY: Abdominal pain. ABD PAIN COMPARISON: Abdomen Pelvis W Contrast dated 04/22/2017; CT ABD PELVIS W CONTRAST dated 03/20/2015; CT ABD PELVIS W CONTRAST dated 07/08/2013; CT ABD PELVIS W CONTRAST dated 12/11/2012 TECHNIQUE: Biphasic CT imaging of the abdomen and pelvis was performed with 100 ml non-ionic IV cont rast. All CT scans are performed using dose optimization technique as appropriate and may include automated exposure control or mA/KV adjustment according to patient size. FINDINGS: The lung bases are clear. The liver demonstrates diffuse fatty infiltration. The spleen, pancreas, adrenal glands and kidneys a re within normal limits. Cholecystectomy clips. No bowel obstruction, free air, free fluid or abscess. The appendix is normal. No evidence of signi ficant lymphadenopathy. No suspicious bony findings. IMPRESSION: No acute intra-abdominal or pelvic finding. Fatty liver.
--- NOTE | 2019-02-05 15:24 | RAD REPORT ---
EXAM DESCRIPTION: RAD - Chest Pa And Lat (2 Views) - 02/05/2019 3:18 pm CLINICAL HISTORY: ABD PAIN Chest pain. COMPARISON: <Comparisons> FINDINGS: The lungs are clear. The heart is normal in size. No displaced fractures. IMPRESSION: No acute or concerning finding suspected.
[2019-02-05] MEDS ORDERED: ACETAMINOPHEN 500 MG TAB PO PRN (17:48)
[2019-02-05] MEDS ORDERED: SODIUM CHLORIDE 0.9% 10ML INJ IV PRN (17:53)
[2019-02-05 17:54] LABS: Urine Appearance CLEAR; Urine Bilirubin NEGATIVE (NEG); Urine Blood NEGATIVE (NEG); Urine Color YELLOW; Urine Glucose 3+ (NEG); Urine Protein NEGATIVE (NEG); Urine Specific Gravity >=1.030 (1.005-1.030); Urine pH 5.5 (5.0-7.0)
[2019-02-05 17:55] LABS: Urine Microscopic Reflex NO UMIC
[2019-02-05 17:59] LABS: Amylase Level 34 U/L (25-115); Lipase 117 U/L (73-393)
[2019-02-05] MEDS: METRONIDAZOLE 500mg IVPB 500 MG/100 ML BAG IV SCH (18:00)
--- NOTE | 2019-02-05 20:19 | EKG ---
Test Date: 2019-02-05 Test Time: 12:24:20 Java Developer: LUNA MEASUREMENT RESULTS: Intervals: Rate: 97 MD: 156 QRSD: 90 QT: 368 QTc: 467 Mellen: P: 44 MD: 156 QRS: -30 T: 79 INTERPRETIVE STATEMENTS: Normal sinus rhythm Left axis deviation Cannot rule out Anterior infarct, age undetermined Abnormal ECG Compared to ECG 10/31/2016 08:06:36 Left-axis deviation now present Sinus tachycardia no longer present Atrial abnormality no longer present Left anterior fascicular block no longer present Myocardial infarct finding still present Electronically Signed On 02-05-19 20:18:18 CDT by Ken Rodriguez
[2019-02-05] MEDS: PANTOPRAZOLE 40 MG INJ IVP SCH (20:32)
[2019-02-05] MEDS: CIPROFLOXACIN 400mg IV 400 MG/200 ML BAG IV SCH (21:00)
[2019-02-05] MEDS ORDERED: DIPHENHYDRAMINE 25 MG TAB/CAP PO ONE (21:55)
[2019-02-05] MEDS ORDERED: D50W 25 GM/50 ML SYRINGE IV PRN (22:01)
[2019-02-05] MEDS ORDERED: GLUCAGON 1 MG/VIAL IM PRN (22:01)
[2019-02-05] MEDS: METOPROLOL TAR 50 MG TAB PO SCH (23:37)
--- NOTE | 2019-02-06 00:58 | HP ---
Date of Admission: 02/05/2019 Reason For Admission: Severe midepigastric pain with nausea, vomiting, change in bowel habits, and d iarrhea. History Of Present Illness: The patient is a 53-year-old white female with history of Crohn disease, vasculitis, hypertension, hypercholesterolemia, C difficile, and MRSA colitis in the past. The inocente ent was admitted to the hospital due to severe midepigastric pain, nausea, and vomiting. Patient sta ludy that she was in her usual state of health until she had a recent trip, was unable to return for h er scheduled Entyvio infusion and received the infusion yesterday approximately little over a week af ter her anticipated time for her repeat Entyvio infusion. The patient has had prior episodes where s he delayed for infusion. She gets a flare in her Crohn disease. However, in this case, the patient had predominantly midepigastric pain instead of right lower quadrant pain, which usually happens with flares of her Crohn disease. On chart review, she has had right upper quadrant pain as well on flar es of her Crohn disease as well. The patient reports change in bowel habits, diarrhea, nausea, vomit ing in addition to the upper abdominal pain. In office prior to infusion, the patient had some mild lower abdominal tenderness as well. The patient denies any melena, hematochezia, night sweats, chest pain, shortness of breath, seizure, syncope, lower extremity muscle aches, joint aches, backaches. Past Medical History: Significant for: 1.Crohn disease, on Entyvio and Imuran 150 mg daily and p.r.n. Entocort. She also has a history of autoimmune vasculitis, on Plaquenil in the past per Rheumatology. 2.Hypertension. 3.Hypercholesterolemia. 4.Abnormal liver function tests, thought to be related to Crohn disease flare. 5.Clostridium difficile infection. 6.MRSA colitis in the past. Past Surgical History: Includes appendectomy and cholecystectomy. Family History: Father with hypertension, hypercholesterolemia, abnormal skin condition. Followed b y dermatology in tertiary center. He is in [place]. Idiopathic diagnosis of skin condition. Mother w ith cancer. Two sisters were healthy and alive. She has 2 daughters who are healthy and alive. Social History: She is , 2 daughters. No tobacco. Very rare alcoholic beverage, maybe twice per year. Drinks tea many times per day. Allergies: TO REMICADE WITH SHORTNESS OF BREATH. DILAUDID AND MORPHINE CAUSES HIVES. PATIENT HAD A PSYCHOTIC REACTION TO IV SOLU-MEDROL WITH PRIOR ADMINISTRATION IN THE PAST. Home Medications: Include Entyvio, Imuran, and Entocort. Physical Examination: Vital Signs: Temperature 97.3 Fahrenheit, pulse 94, respirations 16, blood pressure 121/77, O2 satur ation 93%. She is 5 feet 7, 171 pounds. BMI 26.8 kg/m2. General: She is in lying bed in mild distress, but states she feels much better since in hospital an d on pain medications. HEENT: Normocephalic, atraumatic. Anicteric. Pupils equal, round, and reactive to light. Anicteri c. Oropharynx clear. Neck: Supple. No masses. Respirations: Clear to auscultation bilaterally. Cardiac: Regular rate and rhythm. No gallops or rubs. Abdomen: Positive bowel sounds. Soft, nondistended, though mildly obese. Pain in the midepigastric area radiating to her back, she reports; but also mild in the right and left upper quadrant, pain in the right and left lower quadrant area as well, predominantly in midepigastric and then lower quadra nt. Extremities: No clubbing, cyanosis, or edema. 2+ pulses. Neuro: Alert and oriented x3. Grossly nonfocal. 5/5 motor strength. Sensation intact to light john ch. Laboratory Data: Patient has a white count of 10.1, hemoglobin of 15.2, hematocrit of 44, MCV of 86, platelet count of 266, polys of 58%, lymphocytes 34%, monocytes 6%, eosinophils 3%. PT 11.5, INR 1. 0, PTT 31.7. Sodium 141, potassium 3.5, chloride 108, bicarb 25, BUN 17, creatinine 0.8, glucose 88, calcium 9.0, total bilirubin 0.3, direct bilirubin less than 0.1, AST of 44, ALT of 96, alkaline eliseo sphatase of 133. C-reactive protein 10.10. Total protein 7.9, albumin 3.9, amylase 34, lipase arpita l at 117. UA 3+ glucose, otherwise negative. Chest x-ray, no acute finding. CT abdomen and pelvis was negative except there was some fatty liver. Impression: 1.Midepigastric pain radiating to back with associated nausea and vomiting, change in bowel habits, diarrhea. The patient states this may feel like her prior pancreatitis events in the past. We will need to check amylase and lipase. 2.Crohn disease flare versus luminal disease such as peptic ulcer disease, gastritis, although erin juarez has been on omeprazole long-term. Of note, patient had IV Entyvio infusion yesterday though it wa s a week or more late and therefore could be exacerbation of Crohn disease. She states it usually ta kes 2 to 3 days for her inflammatory bowel disease to improve after Entyvio infusion if she is flarin g. Of note, CT of the abdomen and pelvis was negative which is reassuring for Crohn disease and for possibility of pancreatitis and also luminal disease seems less likely with long-term PPI therapy. Recommendations: 1.IV fluids. 2.Continue p.r.n. pain medications and antiemetics. 3.Check stool studies. 4.After her stool studies collected, we will start IV antibiotics. 5.We will avoid steroids in this case since patient had a reaction to Solu-Medrol with psychosis on last administration. 6.Await urinalysis. 7.Await amylase and lipase, which were noted. 8.Clear liquid diet, advance slowly to full liquids and then to GI soft as tolerated. 9.PPI therapy. We will consult internal medicine, Dr. Lobo Hair. ROSA ELENA/DAVE Voice ID: [id number]
[2019-02-06] MEDS: PROMETHAZINE 25 MG/ML VIAL IV PRN ×2 (05:08→19:12)
[2019-02-06] MEDS: MEPERIDINE HCL 50 MG/ML IV PRN (05:16)
[2019-02-06] MEDS: Ringers Lactate 1,000 ML IV SCH ×3 (05:17→13:02)
[2019-02-06] MEDS: METRONIDAZOLE 500mg IVPB 500 MG/100 ML BAG IV SCH ×4 (06:00→18:00)
[2019-02-06] MEDS: INSULIN -REGULAR HUMAN 50 UNIT/0.5 ML ML SQ SCH ×4 (07:30→21:00)
[2019-02-06] MEDS: LOSARTAN POTASSIUM 50 MG TABLET PO SCH (09:00)
[2019-02-06] MEDS: CIPROFLOXACIN 400mg IV 400 MG/200 ML BAG IV SCH ×2 (09:00→22:55)
[2019-02-06] MEDS: METOPROLOL TAR 50 MG TAB PO SCH ×2 (09:00→21:00)
[2019-02-06] MEDS: ONDANSETRON 4 MG/2 ML VIAL IV PRN ×3 (09:04→22:46)
[2019-02-06] MEDS: PANTOPRAZOLE 40 MG INJ IVP SCH ×2 (09:10→22:50)
[2019-02-06] MEDS ORDERED: DIPHENHYDRAMINE 25 MG TAB/CAP PO PRN (11:46)
--- NOTE | 2019-02-06 15:19 | PN ---
Date of Progress Note: 02/06/2019 Subjective: Patient was seen this morning. When I walked in her room she was sleeping and had littl e bit difficulty waking her up, but she did wake up, but was still extremely drowsy and groggy. She did answer questions appropriately and went back to sleep. When I saw her at that time, she was not on any oxygen or any pulse ox monitor. So, I immediately asked the nursing staff to put her on a pul se ox monitor as I was concerned about the way her overall appearance was. She did not appear cyanot ic at all. She did not have any respiratory distress, but just appeared very drowsy and sleepy. Her oxygen saturation was 74% and she was placed on oxygen immediately and by that time she woke up and after she woke up and with use of oxygen, her oxygen saturation was normal. I came back to check on her after all that and she was back to her normal self awake, alert, with oxygen saturation around 98 to 99% with nasal cannula oxygen around 1 to 2 L/minute. When I came back, second time to check on her she did not even remember me visiting her earlier today. Her abdominal pain is better today than yesterday. Last time she got her IV Demerol was around 5:30 a.m. today, which was 50 mg and Demerol was every 4 hours p.r.n. for pain and she also had fentanyl patch 75 mcg. With this episode of hypo clarence this morning, I have discontinued her fentanyl patch and reduced Demerol dose from 50 to 25 mg ev aaliyah 4 hours as needed. Physical Examination: HEENT: Unremarkable. Lungs: Clear to auscultation. Abdomen: Soft bowel sounds present except with tenderness in upper abdomen. No rebound tenderness. Extremity: No leg edema. Impression: 1.Hypoxia secondary to pain medications. 2.Crohn disease, with acute exacerbation. 3.Hypertension. 4.Diabetes mellitus. Plan: The patient was placed on continuous pulse ox monitor and I have requested her to be moved debbi ser to the nurses station for closer observation. She is back to her normal self again and we will g elvin her lower dose of pain medication, Demerol 25 mg every 4 hours as per order and I have taken the liberty of changing that dose this morning and also have taken liberty to discontinue fentanyl patch. Nurse was instructed to notify Dr. Shah regarding this changes from this morning. CASPER/MODL Voice ID: [id number] Report ID: [id number]
--- NOTE | 2019-02-06 15:42 | RAD REPORT ---
EXAM DESCRIPTION: Valarie Single View02/06/2019 3:27 pm CLINICAL HISTORY: sob COMPARISON: February 05 FINDINGS: The lungs appear clear of acute infiltrate. The heart is borderline enlarged IMPRESSION: No acute abnormalities displayed
--- NOTE | 2019-02-06 16:50 | CON ---
Date of Consultation: 02/05/2019 Reason For Consultation: Medical management. History Of Present Illness: This is a 53-year-old very pleasant female patient who has underlying Cr ohn disease, gets treatment with Dr. Shah and gets Entyvio infusion. She was on vacation, so she w as late by a few days to get her infusion; but as soon as she came back to town, she got her IV infus ion yesterday at the office of Dr. Shah. In the last few days, she reported that she has been havi ng increasing abdominal pain, nausea, vomiting, diarrhea. She contacted Dr. Shah and he admitted h er to the hospital for further evaluation and management of this problem. Denies any fever, chills. No bleeding. Pain is mostly in her upper abdomen, and it is more or less continuous. She also says that along with her upper abdominal pain, she also has pain in her back region. I saw her this afte rnoon for the consultation, and with pain medication that was started by Dr. Shah, she is feeling a little comfortable. Medications: List was reviewed. Review of Systems: GI: As mentioned above. All other systems were reviewed and were negative. Allergies: DILAUDID, MORPHINE, AND REMICADE. Social History: Negative for smoking and alcohol use. Family History: Significant for hypertension, skin cancer, hyperlipidemia. Past Medical History: Significant for hypertension, sinus tachycardia, Crohn disease, hyperlipidemia , abnormal liver function test, inflammatory arthropathy associated with Crohn disease, and type 2 di abetes mellitus. Past Surgical History: Significant for cholecystectomy. Physical Examination: Vital Signs: Temperature 98, pulse 110, respiratory rate 18, blood pressure 123/93, oxygen saturatio n 94% on room air, height 5 feet 7 inches, weight 171 pounds. General: Awake, alert, oriented, not in distress. HEENT: Head atraumatic, normocephalic. Conjunctivae nonerythematous. Sclerae white. Mouth, no thr ush or edema noted. Ears/Nose, no mass, lesion, discharge noted. Neck: Supple. No JVD, lymph nodes, bruit, thyromegaly noted. Lungs: Bilateral good equal air entry. Clear to auscultation. No rhonchi. No rales. Heart: Normal heart sounds, no murmur or gallop. Abdomen: Soft, not distended. Bowel sounds normal. No guarding, rigidity. No hepatosplenomegaly. No rebound tenderness. Patient does have significant tenderness in the upper abdomen, mostly in the mid abdomen and epigastric region. Extremities: No leg edema. No calf tenderness. Skin: No rash, ulcer, cellulitis. Lymphatics: No lymph node enlargement in neck, supraclavicular, infraclavicular region. Neuro: No focal neurological deficit. Chest: Unremarkable. External Genitalia: Deferred. Rectal: Deferred. Laboratory Data And Imaging: White count 10.1, hemoglobin 15.2, platelets 266. Sedimentation rate 1 6. Sodium 141, potassium 3.5, chloride 108, bicarb 25, BUN 17, creatinine 0.84, glucose 88. Liver f unction tests: SGOT 44, SGPT 96, alkaline phosphatase 133. Amylase 34, lipase 117. C-reactive prot ein 10. Urinalysis: 3+ glucose, otherwise negative. CAT scan of abdomen and pelvis with contrast shows fatty liver. Otherwise no acute intraabdominal or pelvic findings. Chest x-ray: No acute intrathoracic findings. EKG: Normal sinus rhythm, left axis deviation. Impression: 1.Hypertension. 2.Diabetes mellitus. 3.Mixed hyperlipidemia. 4.Abnormal liver function tests. 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 6.Crohn disease with acute exacerbation. Plan: We will go ahead and continue her home medications per order. Diabetes will be managed with s liding scale insulin. We will go ahead and provide DVT prophylaxis per order. Dr. Shah is managin g her acute exacerbation of Crohn disease with pain medication, IV antibiotics, and IV fluid. I will see her tomorrow for followup. Ambulation was encouraged. CASPER/MODL Voice ID: [id number] Report ID: [id number]
[2019-02-06] MEDS: ENOXAPARIN 40 MG/0.4 ML SQ SCH (17:02)
--- NOTE | 2019-02-06 17:35 | P.PN ---
Subjective Date of Service: 02/06/19 Chief Complaint: NOHEMI pain, N/V, diarrhea Subjective: Improving (No diarrhea since admission on therapy. Some improvement in NOHEMI pain. Decreased nausea. She was found to have O2 sat at ~ 74% this morning; Fentanyl patch removed with improvement with sat in 80s to high 90s; she denies SOB, dyspnea, or significant cough. Her finger tips are cold with warm palms of her hands, maybe early Raynauds. CXR on admission and today unremarkable. She is itching, better with Benadryl treatment (psychotic reaction to IV Solumedrol in the past).) Review of Systems 10-point ROS is otherwise unremarkable General: Weakness (Improving. ), Malaise (Improving.) Gastrointestinal: Nausea (Improving.), Abdominal Pain (Improving.) Physical Examination - Vital Signs Temperature: 97.7 F Blood Pressure: 112/54 Pulse: 58 Respirations: 16 Pulse Ox (%): 96 - Physical Exam General: Alert, In no apparent distress, Oriented x3, Cooperative HEENT: Atraumatic, Normocephalic, PERRLA, EOMI Neck: Supple Respiratory: Normal air movement Cardiovascular: Normal pulses Gastrointestinal: Soft and benign, No rebound, Tenderness (Somewhat improved. ) , Guarding Neurological: Normal speech, Normal strength at 5/5 x4 extr - Studies Laboratory Data (last 24 hrs) 02/05/19 17:30: Amylase 34, Lipase 117 Assessment And Plan - Current Problems (Diagnosis) (1) Epigastric abdominal pain Current Visit: Yes Status: Acute (2) Change in bowel habits Current Visit: Yes Status: Acute (3) Crohn's disease Current Visit: No Status: Acute (4) Diarrhea Current Visit: No Status: Acute (5) Nausea & vomiting Current Visit: No Status: Acute - Plan REC:1) continue IVFs and IV antibiotics 2) Fentanyl d/c'd, will monitor to assess whether itching resolves off Fentanyl or some other reaction (she and family have many allergies / reactions) 3) CLs to FLs to low residue diet 4) place ear O2 sat probe, instead of finger probe
[2019-02-06] MEDS: MEPERIDINE HCL 25 MG/0.5 ML IVP PRN (22:48)
[2019-02-06] MEDS: AMITRIPTYLINE 50 MG TAB PO SCH (22:57)
[2019-02-07] MEDS: METRONIDAZOLE 500mg IVPB 500 MG/100 ML BAG IV SCH
[2019-02-07] MEDS: PROMETHAZINE 25 MG/ML VIAL IV PRN ×3 (00:32→17:59)
[2019-02-07] MEDS: Ringers Lactate 1,000 ML IV SCH ×5 (00:32→20:00)
[2019-02-07] MEDS: INSULIN -REGULAR HUMAN 50 UNIT/0.5 ML ML SQ SCH ×4 (07:30→20:36)
[2019-02-07] MEDS: ONDANSETRON 4 MG/2 ML VIAL IV PRN ×2 (08:07→16:39)
[2019-02-07] MEDS: PANTOPRAZOLE 40 MG INJ IVP SCH ×2 (08:09→20:37)
[2019-02-07] MEDS: LOSARTAN POTASSIUM 50 MG TABLET PO SCH (08:09)
[2019-02-07] MEDS: METOPROLOL TAR 50 MG TAB PO SCH ×2 (08:12→20:38)
--- NOTE | 2019-02-07 10:15 | PN ---
Date of Progress Note: 02/07/2019 Subjective: The patient was seen this morning for followup. She was feeling better except her ongoin g nausea and vomiting. She vomited each time she tried to eat yesterday. She had diarrhea once yest erday and once today. Abdominal pain is better. Vital signs reviewed. Oxygenation is normal and ad equate on 1 L nasal cannula oxygen. Objective: Vital Signs: Reviewed. HEENT: Examination unremarkable. Lungs: Clear to auscultation. Heart: Sounds normal. Abdomen. Soft. Bowel sounds normal. No guarding, rigidity, presence of tenderness in the upper abd omen, but no rebound tenderness. Bowel sounds normoactive. Extremities: No leg edema. Impression: 1.Hypoxia, resolved. 2.Hypertension. 3.Diabetes mellitus. 4.Crohn disease with acute exacerbation. Plan: Patient's hypoxia problem resolved yesterday and her mental status is back to normal. I had i nstructed nursing staff to try to wean off oxygen today if possible. Dr. Jung is managing her Crohn disease exacerbation problem. Blood pressure is stable. CASPER/MODL Voice ID: [id number] Report ID: [id number]
[2019-02-07] MEDS: MEPERIDINE HCL 25 MG/0.5 ML IVP PRN ×2 (10:51→17:59)
--- NOTE | 2019-02-07 11:46 | P.PN ---
Subjective Date of Service: 02/07/19 Chief Complaint: NOHEMI pain, N/V, diarrhea Subjective: Improving (Slowly improving. Itching has resolved. Weaning off O2 today. One loose stool this morning. Less abdominal pain. Wants solid food.) Review of Systems 10-point ROS is otherwise unremarkable General: Weakness, Malaise Gastrointestinal: Nausea, Abdominal Pain, Diarrhea Neurological: Weakness Physical Examination - Vital Signs Temperature: 97.7 F Blood Pressure: 99/71 Pulse: 64 Respirations: 18 Pulse Ox (%): 95 - Physical Exam General: Alert, In no apparent distress, Oriented x3, Cooperative HEENT: Atraumatic, Normocephalic, PERRLA, EOMI Neck: Supple Respiratory: Normal air movement Cardiovascular: Normal pulses Gastrointestinal: Soft and benign, No tenderness, No rebound, No guarding Neurological: Normal speech, Normal strength at 5/5 x4 extr Assessment And Plan - Current Problems (Diagnosis) (1) Epigastric abdominal pain Current Visit: Yes Status: Acute (2) Change in bowel habits Current Visit: Yes Status: Acute (3) Crohn's disease Current Visit: No Status: Acute (4) Diarrhea Current Visit: No Status: Acute (5) Nausea & vomiting Current Visit: No Status: Acute - Plan REC:1) continue IVFs and IV antibiotics 2) wean off O2 as able today 3) low residue diet 4) place ear O2 sat probe, instead of finger probe
[2019-02-07] MEDS: ENOXAPARIN 40 MG/0.4 ML SQ SCH (16:39)
[2019-02-07] MEDS: AMITRIPTYLINE 50 MG TAB PO SCH (20:37)
[2019-02-07 20:50] VITALS: O2SAT 92
[2019-02-08] MEDS: PROMETHAZINE 25 MG/ML VIAL IV PRN ×2 (03:38→09:25)
[2019-02-08] MEDS: MEPERIDINE HCL 25 MG/0.5 ML IVP PRN ×3 (03:38→14:14)
[2019-02-08] MEDS: Ringers Lactate 1,000 ML IV SCH ×2 (03:47→12:00)
[2019-02-08 04:28] LABS: Absolute Lymphocytes (CBC) 1.9 K/uL (0.7-4.9); Basophils % 0.4 % (0-1.3); Hematocrit 40.6 % (36.0-45.0); MPV 10.2 fL (7.6-11.3); RBC Red Blood Cell Count 4.63 M/uL (3.86-4.86)
[2019-02-08 04:37] LABS: BUN Blood Urea Nitrogen 7 mg/dL (7-18); Bicarbonate 29 mmol/L (21-32); Glucose Level 116 mg/dL (74-106); Magnesium 1.8 mg/dL (1.8-2.4); Phosphorus 3.2 mg/dL (2.5-4.9); Potassium 3.8 mmol/L (3.5-5.1); Sodium Level 142 mmol/L (136-145)
[2019-02-08] MEDS: INSULIN -REGULAR HUMAN 50 UNIT/0.5 ML ML SQ SCH ×2 (07:30→11:30)
[2019-02-08] MEDS: METOPROLOL TAR 50 MG TAB PO SCH (09:26)
[2019-02-08] MEDS: PANTOPRAZOLE 40 MG INJ IVP SCH (09:26)
[2019-02-08] MEDS: LOSARTAN POTASSIUM 50 MG TABLET PO SCH (09:26)
[2019-02-08 13:43] VITALS: BP 125/86; TEMP 96.8
--- NOTE | 2019-02-09 00:24 | PN ---
Date of Progress Note: 02/08/2019 Subjective: Patient was seen this morning for followup. No new complaints or problems reported by lenny crouch. She has had some nausea, vomited a couple of times yesterday at breakfast and lunch time, bu t she was able to tolerate her dinner without any vomiting. Appetite is still not normal, but at [address] she was able to keep some of her dinner down and no vomiting at dinner time. Abdominal pain is be tter. Objective: Vital Signs: Reviewed. HEENT: Unremarkable. Lungs: Clear to auscultation. Heart: Sounds normal. Abdomen: Soft. Bowel sounds normal. No guarding, rigidity, or distention. Mild tenderness in uppe r abdomen, overall better than before. Extremities: No leg edema. Impression: 1.Hypertension. 2.Diabetes mellitus. 3.Abnormal liver function test. 4.Crohn disease with acute exacerbation. Plan: Patient is medically stable and improving. She informed me this morning that she would like t o go home today if possible and I have informed her that from my point of view she is medically stabl e for discharge provided Dr. Shah, her metal fabrication supervisor feels comfortable discharging her. Upon discharge from the hospital, she should continue her home medications as she was taking before, excep t any changes suggested by Dr. Shah and patient to follow up with him per his instructions and follow up at my office per her scheduled appointment. CASPER/MODL Voice ID: [id number] Report ID: [id number]
== END 2019-02-08 15:21 | disposition home or self-care (01) | DRG 387 ==
LOC: 4TH 11:22
PROVIDERS: ADMIT Internal Medicine Gastroenterology; ATTEND Internal Medicine Gastroenterology
DX: K50.90 Crohn's disease, unspecified, without complications (principal); I10 Essential (primary) hypertension; E11.9 Type 2 diabetes mellitus without complications; R09.02 Hypoxemia; E78.5 Hyperlipidemia, unspecified; E78.2 Mixed hyperlipidemia; M07.60 Enteropathic arthropathies, unspecified site; R94.5 Abnormal results of liver function studies
CPT/HCPCS: 36415; 71045; 71046; 74177; 80048; 80076; 81003; 82150; 82962; 83690; 83735; 84100; 85025; 85610; 85652; 85730; 86140; 93005; 94760; C9113; J0744; J1650; J2175; J2405; J2550; Q9967

== ENCOUNTER 2019-05-10 06:39 | Emergency (ER) | payer OTHER ==
[2019-05-10] MEDS ORDERED: NA CHLORIDE 0.9% 1,000 ML ONE (07:12)
[2019-05-10] MEDS ORDERED: PROMETHAZINE 25 MG/ML VIAL ONE ×2 (07:12→09:34)
[2019-05-10 07:57] LABS: Absolute Lymphocytes (CBC) 1.7 K/uL (0.7-4.9); Basophils % 0.5 % (0-1.3); Hematocrit 47.1 % (36.0-45.0); Lymphocytes % 14.9 % (15.3-44.8); MPV 9.6 fL (7.6-11.3); RBC Red Blood Cell Count 5.42 M/uL (3.86-4.86)
[2019-05-10] MEDS ORDERED: FENTANYL CITR 100 MCG/2 ML ONE ×2 (07:59→11:37)
[2019-05-10 08:21] LABS: Albumin 3.9 g/dL (3.4-5.0); Bilirubin Direct 0.2 mg/dL (0-0.2); Bilirubin Total 0.7 mg/dL (0.2-1.0); Potassium 3.8 mmol/L (3.5-5.1); Protein, Total 7.9 g/dL (6.4-8.2)
[2019-05-10 09:21] LABS: Blood Morphology Comment NOT SEEN (NOT SEEN); Platelet Estimate ADEQ; Urine White Blood Cell Casts OK
--- NOTE | 2019-05-10 09:22 | RAD REPORT ---
EXAM DESCRIPTION: CTAbdomen Pelvis W Contrast - 05/10/2019 8:53 am CLINICAL HISTORY: Abdominal pain. Abd pain;Constipation COMPARISON: Abdomen Pelvis W Contrast dated 02/05/2019; Abdomen Pelvis W Contrast dated 7; CT ABD PELVIS W CONTRAST dated 03/20/2015; CT ABD PELVIS W CONTRAST dated 07/08/2013 TECHNIQUE: Biphasic CT imaging of the abdomen and pelvis was performed with 100 ml non-ionic IV cont rast. All CT scans are performed using dose optimization technique as appropriate and may include automated exposure control or mA/KV adjustment according to patient size. FINDINGS: Mild linear opacities are present in both posterior lung bases. Mild fatty liver is seen. Cholecystectomy clips are evident. No intra or extrahepatic biliary tree di latation. The spleen, pancreas, adrenal glands and kidneys are within normal limits. No bowel obstruction, free air, free fluid or abscess. Prominent retained stool throughout the colon is seen. The appendix is not identified as a discrete structure, however, no secondary findings of ap pendicitis are identified. No evidence of significant lymphadenopathy. No suspicious bony findings. IMPRESSION: Significant fecal retention throughout the colon.
[2019-05-10] MEDS ORDERED: MAGNESIUM CITRATE 300 ML BOT ONE (09:31)
[2019-05-10] MEDS ORDERED: BISACODYL 10 MG RECTAL SUPP ONE (09:31)
[2019-05-10] MEDS ORDERED: FLEET ENEMA ADULT PR ONE ×2 (10:56→14:31)
--- NOTE | 2019-05-10 15:34 | ER ---
Nurse's Notes [facility] Name: Wayne Campos Age: 54 yrs Sex: Female : 1965 Arrival Date: 05/10/2019 Time: 06:42 Bed 15 Private MD: Diagnosis: Constipation, unspecified Presentation: 05/10 06:54 Presenting complaint: Patient states: she has Hx of Chrons Disease, C/O abdominal pain wh and distention and no bowel movement for 5 days. Transition of care: patient was not received from another setting of care. Onset of symptoms was May 05, 2019. Risk Assessment: Do you want to hurt yourself or someone else? Patient reports no desire to harm self or others. Initial Sepsis Screen: Does the patient meet any 2 criteria? HR > 90 bpm. Does the patient have a suspected source of infection? Yes: Acute abdominal pain. Care prior to arrival: None. 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: 06:56 LMP N/A - Hysterectomy Historical: - Allergies: 07:01 hydromorphone HCl; 07:01 Infliximab; 07:01 Morphine; - Home Meds: 07:08 amitriptyline Oral [Active]; Entyvio intravenous [Active]; Farxiga Oral [Active]; losartan Oral [Active]; mercaptopurine Oral [Active]; metoprolol tartrate Oral [Active]; insulin asparte sliding scale [Active]; Prednisone Oral [Active]; promethazine Oral [Active]; Tresiba FlexTouch U-100 subcutaneous [Active]; - PMHx: 07:01 Crohn's Disease; Diabetes - IDDM; Hypertension; 07:08 Hepatitis; - PSHx: 07:01 Cholecystectomy; Hysterectomy; - Immunization history:: Adult Immunizations up to date. - Social history:: Smoking status: Patient/guardian denies using tobacco. - Ebola Screening: : Patient negative for fever greater than or equal to 101.5 degrees Fahrenheit, and additional compatible Ebola Virus Disease symptoms Patient denies exposure to infectious person. Screenin:55 Abuse screen: Denies threats or abuse. Denies injuries from another. Nutritional screening: No deficits noted. Tuberculosis screening: No symptoms or risk factors identified. Fall Risk None identified. Assessment: 07:15 General: Appears in no apparent distress. uncomfortable, Behavior is calm, cooperative. hb Pain: Pain currently is 7 out of 10 on a pain scale. Neuro: Level of Consciousness is awake, alert, obeys commands, Oriented to person, place, time, situation. Cardiovascular: Capillary refill < 3 seconds Patient's skin is warm and dry. Respiratory: Airway is patent Respiratory effort is even, unlabored, Respiratory pattern is regular, symmetrical, Breath sounds are clear bilaterally. GI: Abdomen is non-distended, Bowel sounds present X 4 quads. Abd is soft and non tender X 4 quads. : No signs and/or symptoms were reported regarding the genitourinary system. EENT: No signs and/or symptoms were reported regarding the EENT system. Derm: Skin is pink, warm \T\ dry. Musculoskeletal: No signs and/or symptoms reported regarding the musculoskeletal system. 08:00 Reassessment: Patient appears in no apparent distress at this time. Patient and/or hb family updated on plan of care and expected duration. Pain level reassessed. Patient is alert, oriented x 3, equal unlabored respirations, skin warm/dry/pink. 09:10 Reassessment: Patient appears in no apparent distress at this time. Patient and/or hb family updated on plan of care and expected duration. Pain level reassessed. Patient is alert, oriented x 3, equal unlabored respirations, skin warm/dry/pink. 10:45 Reassessment: reports not feeling any better, has not had a BM yet, provider notified, em new medication orders received. 12:47 Reassessment: unable to have BM at this time, given apple, prune juice and butter per em provider order. 13:30 Reassessment: Patient appears in no apparent distress at this time. Patient and/or em family updated on plan of care and expected duration. Pain level reassessed. Patient is alert, oriented x 3, equal unlabored respirations, skin warm/dry/pink. reports pressure, reports pain is better. 14:52 Reassessment: assisted patient to bedside commode. Small BM noted. ss 15:10 Reassessment: Patient appears in no apparent distress at this time. Patient and/or em family updated on plan of care and expected duration. Pain level reassessed. Patient is alert, oriented x 3, equal unlabored respirations, skin warm/dry/pink. had a moderate BM, reports relief at this time, provider notified. Vital Signs: 06:56 BP 147 / 110; Pulse 107; Resp 18; Temp 98.1; Pulse Ox 99% ; Weight 77.11 kg; Height 5 wh ft. 7 in. (170.18 cm); Pain 7/10; 09:13 BP 146 / 105; Pulse 94; Resp 15; Pulse Ox 99% on R/A; Pain 3/10; hb 11:30 BP 138 / 75; Pulse 102; Resp 18; Pulse Ox 97% on R/A; Pain 8/10; em 13:44 BP 134 / 87; Pulse 94; Resp 20; Pulse Ox 99% on R/A; em 15:51 BP 136 / 92; Pulse 96; Resp 18; Pulse Ox 99% on R/A; Pain 2/10; em 06:56 Body Mass Index 26.63 (77.11 kg, 170.18 cm) ED Course: 06:42 Patient arrived in ED. jg7 06:46 Buster Elizabeth PA is PHCP. jmm 06:47 Gaetano Parks MD is Attending Physician. jmm 06:55 Triage completed. 06:56 Patient has correct armband on for positive identification. Bed in low position. Call light in reach. Side rails up X 1. Pulse ox on. NIBP on. 06:56 Arm band placed on right wrist. 07:08 Poncho Brown, RN is Primary Nurse. tr5 07:22 Missed attempt(s): 22 gauge in right antecubital area. tr5 07:44 Missed attempt(s): 24 gauge in right forearm. Bleeding controlled, band aid applied, dh3 catheter tip intact. 07:52 Inserted saline lock: 22 gauge in left wrist, using aseptic technique. ss 09:06 gave pt a pair of traction socks. bd 15:34 Marvin Shah MD is Referral Physician. jmm 15:49 No provider procedures requiring assistance completed. IV discontinued, intact, em bleeding controlled, No redness/swelling at site. Pressure dressing applied. Administered Medications: 07:53 Drug: NS 0.9% 1000 ml Route: IV; Rate: 1 bolus; Site: left wrist; ss 09:35 Follow up: Response: No adverse reaction; IV Status: Completed infusion; IV Intake: hb 1000ml 08:00 Drug: Promethazine 12.5 mg Route: IVP; Site: left wrist; tr5 08:40 Follow up: Response: No adverse reaction hb 08:00 Drug: fentaNYL (PF) 50 mcg Route: IVP; Site: left wrist; tr5 08:40 Follow up: Response: No adverse reaction hb 09:10 Drug: Phenergan 12.5 mg Route: IVP; Site: left wrist; em 09:50 Follow up: Response: No adverse reaction; Nausea is decreased em 09:34 Drug: Magnesium Citrate Liquid 300 ml Route: PO; em 10:48 Follow up: Response: No adverse reaction em 09:34 Drug: Dulcolax Suppository 10 mg Route: IL; em 10:48 Follow up: Response: No adverse reaction; No change in condition em 11:12 Drug: Fleet Enema 133 ml Route: IL; em 11:30 Follow up: Response: No adverse reaction; No change in condition em 11:40 Drug: fentaNYL (PF) 25 mcg Route: IVP; Site: left wrist; ss 12:05 Follow up: Response: No adverse reaction; Marked relief of symptoms; Pain is decreased em 14:51 Drug: Fleet Enema 133 ml Route: IL; em 15:15 Follow up: Response: Marked relief of symptoms tr5 Intake: 09:35 IV: 1000ml; Total: 1000ml. hb Outcome: 15:34 Discharge ordered by . isabel 15:49 Discharged to home ambulatory, with family. em 15:49 Condition: good 15:49 Discharge instructions given to patient, family, Instructed on discharge instructions, follow up and referral plans. Demonstrated understanding of instructions, follow-up care. 15:58 Patient left the ED. em Signatures: Marleny Corrigan Joel, PA PA m Sterling Galan, BUSINESS INTELLIGENCE MANAGER BUSINESS INTELLIGENCE MANAGER em Chichi Brito RN RN Marci Uribe RN RN Seema Brown [facility] Violet Myles Tommie, RN RN tr5 Lore Chaug7
--- NOTE | 2019-05-10 15:34 | EDPHYS ---
Physician Documentation [facility] Name: Wayne Campos Age: 54 yrs Sex: Female : 1965 Arrival Date: 05/10/2019 Time: 06:42 Bed 15 Private MD: ED Physician Gaetano Parks HPI: 05/10 07:31 This 54 yrs old Female presents to ER via Ambulatory with complaints of jmm Constipation. 07:31 The patient presents with abdominal pain. Onset: The symptoms/episode began/occurred jmm gradually, 5 day(s) ago. The symptoms do not radiate. Associated signs and symptoms: Pertinent positives: constipation, vomiting. The patient has not experienced similar symptoms in the past. This is a 54 year old female with a history of crohns disease, DM, HTN, that presents to the ED with complaints of abdominal pain, vomiting, constipation beginning 5 days ago. Patient states that 1 week prior she had developed ribbon like stools with no abdominal pain. Denies fever. . 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: 06:56 LMP N/A - Hysterectomy wh Historical: - Allergies: 07:01 hydromorphone HCl; 07:01 Infliximab; 07:01 Morphine; - Home Meds: 07:08 amitriptyline Oral [Active]; Entyvio intravenous [Active]; Farxiga Oral [Active]; losartan Oral [Active]; mercaptopurine Oral [Active]; metoprolol tartrate Oral [Active]; insulin asparte sliding scale [Active]; Prednisone Oral [Active]; promethazine Oral [Active]; Tresiba FlexTouch U-100 subcutaneous [Active]; - PMHx: 07:01 Crohn's Disease; Diabetes - IDDM; Hypertension; 07:08 Hepatitis; - PSHx: 07:01 Cholecystectomy; Hysterectomy; - Immunization history:: Adult Immunizations up to date. - Social history:: Smoking status: Patient/guardian denies using tobacco. - Ebola Screening: : Patient negative for fever greater than or equal to 101.5 degrees Fahrenheit, and additional compatible Ebola Virus Disease symptoms Patient denies exposure to infectious person. ROS: 07:31 Constitutional: Negative for fever, chills, and weight loss, Cardiovascular: Negative jm for chest pain, palpitations, and edema, Respiratory: Negative for shortness of breath, cough, wheezing, and pleuritic chest pain. 07:31 Abdomen/GI: Positive for abdominal pain, nausea and vomiting, constipation. 07:31 All other systems are negative. Exam: 07:31 Constitutional: This is a well developed, well nourished patient who is awake, alert, jmm and in no acute distress. Head/Face: atraumatic. Eyes: EOMI, no conjunctival erythema appreciated ENT: Moist Mucus Membranes Neck: Trachea midline, Supple Chest/axilla: Normal chest wall appearance and motion. Cardiovascular: Regular rate and rhythm. No edema appreciated Respiratory: Normal respirations, no respiratory distress appreciated Abdomen/GI: Non distended, soft Back: Normal ROM Skin: General appearance color normal MS/ Extremity: Moves all extremities, no obvious deformities appreciated, no edema noted to the lower extremities Neuro: Awake and alert, normal gait Psych: Behavior is normal, Mood is normal, Patient is cooperative and pleasant Vital Signs: 06:56 BP 147 / 110; Pulse 107; Resp 18; Temp 98.1; Pulse Ox 99% ; Weight 77.11 kg; Height 5 wh ft. 7 in. (170.18 cm); Pain 7/10; 09:13 BP 146 / 105; Pulse 94; Resp 15; Pulse Ox 99% on R/A; Pain 3/10; hb 11:30 BP 138 / 75; Pulse 102; Resp 18; Pulse Ox 97% on R/A; Pain 8/10; em 13:44 BP 134 / 87; Pulse 94; Resp 20; Pulse Ox 99% on R/A; em 15:51 BP 136 / 92; Pulse 96; Resp 18; Pulse Ox 99% on R/A; Pain 2/10; em 06:56 Body Mass Index 26.63 (77.11 kg, 170.18 cm) Procedures: 12:22 Performed Manual Disimpaction. diane MDM: 07:01 Patient medically screened. [facility] 15:33 Data reviewed: vital signs, nurses notes. Counseling: I had a detailed discussion with isabel the patient and/or guardian regarding: the historical points, exam findings, and any diagnostic results supporting the discharge/admit diagnosis, lab results, radiology results, the need for outpatient follow up, to return to the emergency department if symptoms worsen or persist or if there are any questions or concerns that arise at home. ED course: Patient had a large BM in the ED. Patient states she feels much better. Will follow up with Dr. Jung tomorrow in clinic. Patient is otherwise given strict return precautions. patient understood and agrees with the plan of care. . 05/10 07:06 Order name: Basic Metabolic Panel [facility] 05/10 07:06 Order name: CBC with Diff [facility] 05/10 07:06 Order name: Creatinine for Radiology [facility] 05/10 07:06 Order name: Hepatic Function [facility] 05/10 07:06 Order name: Lipase [facility] 05/10 08:02 Order name: CBC with Automated Diff; Complete Time: 09:23 EDMS 05/10 07:06 Order name: CT Abd/Pelvis - IV Contrast Only [facility] 05/10 08:21 Order name: Basic Metabolic Panel; Complete Time: 08:26 EDMS 05/10 08:21 Order name: Liver (Hepatic) Function; Complete Time: 08:26 EDMS 05/10 08:21 Order name: Lipase; Complete Time: 08:26 EDMS 05/10 08:21 Order name: Creatinine (Radiology Only); Complete Time: 08:26 EDMS 05/10 09:22 Order name: CBC Smear Scan; Complete Time: 09:23 EDMS 05/10 09:23 Order name: CT; Complete Time: 09:23 EDMS 05/10 07:06 Order name: IV Saline Lock; Complete Time: 07:53 [facility] 05/10 07:06 Order name: Labs collected and sent; Complete Time: 07:53 jmm Administered Medications: 07:53 Drug: NS 0.9% 1000 ml Route: IV; Rate: 1 bolus; Site: left wrist; ss 09:35 Follow up: Response: No adverse reaction; IV Status: Completed infusion; IV Intake: hb 1000ml 08:00 Drug: Promethazine 12.5 mg Route: IVP; Site: left wrist; tr5 08:40 Follow up: Response: No adverse reaction hb 08:00 Drug: fentaNYL (PF) 50 mcg Route: IVP; Site: left wrist; tr5 08:40 Follow up: Response: No adverse reaction hb 09:10 Drug: Phenergan 12.5 mg Route: IVP; Site: left wrist; em 09:50 Follow up: Response: No adverse reaction; Nausea is decreased em 09:34 Drug: Magnesium Citrate Liquid 300 ml Route: PO; em 10:48 Follow up: Response: No adverse reaction em 09:34 Drug: Dulcolax Suppository 10 mg Route: AR; em 10:48 Follow up: Response: No adverse reaction; No change in condition em 11:12 Drug: Fleet Enema 133 ml Route: AR; em 11:30 Follow up: Response: No adverse reaction; No change in condition em 11:40 Drug: fentaNYL (PF) 25 mcg Route: IVP; Site: left wrist; ss 12:05 Follow up: Response: No adverse reaction; Marked relief of symptoms; Pain is decreased em 14:51 Drug: Fleet Enema 133 ml Route: AR; em 15:15 Follow up: Response: Marked relief of symptoms tr5 Disposition: 05/10/19 15:34 Discharged to Home. Impression: Constipation, unspecified. - Condition is Stable. - Discharge Instructions: Constipation, Adult. - Medication Reconciliation Form, Thank You Letter, Antibiotic Education, Prescription Opioid Use form. - Follow up: Marvin Shah MD; When: 2 - 3 days; Reason: Recheck today's complaints, Continuance of care, Re-evaluation by your physician. Addendum: 05/13/2019 07:34 Co-signature as Attending Physician, Gaetano Parks MD. r n Signatures: Dispatcher [employer] EDBuster Ley PA PA [facility] Sterling Galan, RN ED RN ED Gaetano Parks MD MD rn Smirch, Shelby, RN RN Violet Myles Mariela Valencia MD MD ma2 Poncho Brown RN RN tr5 Marci Uribe RN Corrections: (The following items were deleted from the chart) 05/10 15:58 15:34 05/10/2019 15:34 Discharged to Home. Impression: Constipation, unspecified. em Condition is Stable. Forms are Medication Reconciliation Form, Thank You Letter, Antibiotic Education, Prescription Opioid Use. Follow up: Marvin Shah; When: 2 - 3 days; Reason: Recheck today's complaints, Continuance of care, Re-evaluation by your physician. isabel
[2019-05-10 17:11] VITALS: TEMP 98.1
[2019-05-10 17:15] VITALS: O2SAT 99
[2019-05-10 17:16] VITALS: BP 136/92
== END 2019-05-10 15:58 | disposition home or self-care (01) ==
LOC: ER 06:39
DX: K59.00 Constipation, unspecified (principal); I10 Essential (primary) hypertension; E11.9 Type 2 diabetes mellitus without complications; Z79.4 Long term (current) use of insulin; Z88.5 Allergy status to narcotic agent; Z88.8 Allergy status to other drugs, medicaments and biological substances
CPT/HCPCS: 96361; 85025; 80048; 36415; 80076; 83690; 74177; 96375; 96374; 99284; Q9967; J2550 ×2; J3010 ×2; J7030

== ENCOUNTER 2019-07-06 12:55 | Observation (INO) | payer BC, OTHER ==
[2019-07-06] MEDS ORDERED: ASPIRIN EC 81 MG TAB PO ONE (13:36)
[2019-07-06] MEDS ORDERED: D50W 25 GM/50 ML SYRINGE/VIAL IV PRN (13:40)
[2019-07-06] MEDS ORDERED: GLUCAGON 1 MG/VIAL IM PRN (13:40)
[2019-07-06] MEDS ORDERED: METOPROLOL XL 50 MG TAB PO ONE (13:40)
[2019-07-06 14:22] VITALS: BMI 26.6
[2019-07-06 14:30] LABS: CKMB Creatine Kinase MB < 1.0 ng/mL (0.3-3.6); Creatine Phosphokinase 77 U/L (26-192); Troponin I < 0.02 ng/mL (0.0-0.045)
--- NOTE | 2019-07-06 14:35 | RAD REPORT ---
EXAM DESCRIPTION: RAD - Chest Pa And Lat (2 Views) - 07/06/2019 2:28 pm CLINICAL HISTORY: angina Chest pain. COMPARISON: Abdomen 1 View (KUB) dated 05/20/2019; Chest Single View dated 02/06/2019; Chest Pa And L at (2 Views) dated 02/05/2019; Abdomen Acute Series dated 06/07/2018 FINDINGS: The lungs are clear. The heart is normal in size. No displaced fractures. IMPRESSION: No acute or concerning finding suspected.
[2019-07-06 15:54] LABS: Absolute Lymphocytes (CBC) 2.8 K/uL (0.7-4.9); Basophils % 0.5 % (0-1.3); Hematocrit 45.5 % (36.0-45.0); Lymphocytes % 24.5 % (15.3-44.8); MPV 9.2 fL (7.6-11.3); RBC Red Blood Cell Count 5.22 M/uL (3.86-4.86)
[2019-07-06 16:21] LABS: Albumin 3.7 g/dL (3.4-5.0); Bilirubin Total 0.3 mg/dL (0.2-1.0); Magnesium 2.2 mg/dL (1.8-2.4); Potassium 3.6 mmol/L (3.5-5.1); Protein, Total 7.5 g/dL (6.4-8.2)
[2019-07-06] MEDS: INSULIN -REGULAR HUMAN 50 UNIT/0.5 ML ML SQ SCH ×2 (16:25→20:31)
[2019-07-06] MEDS ORDERED: PROMETHAZINE 25 MG TABLET PO PRN (18:00)
--- NOTE | 2019-07-06 18:44 | EKG ---
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
[2019-07-06] MEDS ORDERED: ENOXAPARIN 40 MG/0.4 ML SQ ONE (19:00)
[2019-07-06] MEDS: METOPROLOL TAR 50 MG TAB PO SCH (20:30)
[2019-07-06] MEDS: AMITRIPTYLINE 50 MG TAB PO SCH (20:30)
[2019-07-06] MEDS: MERCAPTOPURINE 50 MG PO SCH (20:32)
[2019-07-06] MEDS ORDERED: HOME MED 1 EA UNK (Amitriptyline Hcl [Amitriptyline Hcl] 100 MG) PO SCH (21:00)
[2019-07-06] MEDS ORDERED: POTASSIUM CL SA 10 MEQ TAB PO ONE (21:00)
--- NOTE | 2019-07-07 03:01 | HP ---
Date of Admission: 07/06/2019 Chief Complaint: Chest pain. History Of Present Illness: This is a 54-year-old pleasant female patient who has longstanding history of diabetes and hyperlipidemia and Crohn disease, came into office today with complaints of chest pain. She reported that yesterday while she was in bed, she started to have this chest pain and she continued to have this chest pain off and on throughout the night until around 6 o'clock this morning and then she fell asleep and woke up around 7:30 and since she woke up, she continues to have this intermittent chest pain. She described her chest pain in the left anterior mid chest radiating to her back. She feels tired and little short of breath with this. After she was evaluated at the office, decision was made to admit her to the hospital. No fall. No injury. No cough, cold, congestion, fever, chills. No expectoration. No hemoptysis. No rash. Medications: List reviewed. Review of Systems: Cardiovascular: As mentioned above. Respiratory: As mentioned above. All other systems reviewed and negative. Allergies: DILAUDID, MORPHINE, AND REMICADE. Past Surgical History: Cholecystectomy. Social History: Negative for smoking or alcohol use. Family History: Hypertension, skin cancer, hyperlipidemia. Past Medical History: Crohn disease, hypertension, mixed hyperlipidemia, abnormal liver function tests, inflammatory arthropathy associated with Crohn disease, and type 2 diabetes mellitus. Physical Examination: Vital Signs: Height 5 feet 7 inches, weight 170 pounds, temperature 97.6, pulse 94, respiratory rate 17, blood pressure 169/93. General: Awake, alert, oriented, not in distress. HEENT: Head atraumatic, normocephalic. Conjunctivae nonerythematous. Sclerae white. Mouth, no thrush or edema noted. Ears/Nose, no mass, lesion, discharge noted. Neck: Supple. No JVD, lymph nodes, bruit, thyromegaly noted. Lungs: Bilateral good equal air entry. Clear to auscultation. No rhonchi. No rales. Heart: Normal heart sounds, no murmur or gallop. Abdomen: Soft, bowel sounds normal. No guarding, rigidity, tenderness, mass, hepatosplenomegaly, distention, or bruit noted. Extremities: No leg edema. No calf tenderness. Skin: No rash, ulcer, cellulitis. Lymphatics: No lymph node enlargement in neck, supraclavicular, infraclavicular region. Neuro: No focal neurological deficit. Chest: Unremarkable. External Genitalia: Deferred. Rectal: Deferred. Laboratory Data: CPK 77 and CK-MB less than 1. Troponin less than 0.02. D- dimer 526. CBC, chemistry pending. Chest x-ray, no acute cardiopulmonary changes. EKG pending. Impression: 1. Angina. 2. Mixed hyperlipidemia. 3. Hypertension. 4. Type 2 diabetes mellitus. 5. Crohn disease. Plan: Admit the patient to hospital for further evaluation and management of this problem. Patient does not take any aspirin. We will start her on aspirin once I review her blood work results. We will start her on Lovenox. Echocardiogram was ordered to be done today. We will consult Cardiology. Home medications will be continued per order. Patient is appropriate for inpatient and is expected to spend 2 midnights in hospital. Toprol at 50 mg p.o. x1 dose was ordered and details and plan of treatment discussed with her. I will see her tomorrow. CASPER/MODL Voice ID: [id number] MTDD
[2019-07-07] MEDS: INSULIN -REGULAR HUMAN 50 UNIT/0.5 ML ML SQ SCH ×4 (07:30→20:03)
[2019-07-07] MEDS ORDERED: REGADENOSON 0.4 MG/5 ML SYR IV ONE (08:40)
[2019-07-07] MEDS: HOME MED 1 EA UNK (Dapagliflozin Propanediol [Farxiga] 10 MG) PO SCH (09:00)
[2019-07-07] MEDS: LOSARTAN POTASSIUM 50 MG TABLET PO SCH (09:00)
[2019-07-07] MEDS: ASPIRIN EC 81 MG TAB PO SCH (09:00)
[2019-07-07] MEDS: METOPROLOL TAR 50 MG TAB PO SCH ×2 (09:00→20:00)
[2019-07-07] MEDS: MERCAPTOPURINE 50 MG PO SCH ×2 (09:00→21:00)
[2019-07-07] MEDS: BUDESONIDE, MICRONIZED 3 MG CAP PO SCH (09:00)
--- NOTE | 2019-07-07 09:30 | TREADPHA ---
DX: ANGINA Date of Study: 07/07/2019 Ht: 5 7 Wt: 170 lb 0 oz Consulting Physician: GRANT MEDICATIONS: ASPIRIN, ELAVIL, DEXTROSE, GLUCAGEN, NOVOLIN-R, COZAAR, LOPRESSOR, PREDNISONE HISTORY: 54 YEAR OLD FEMALE WITH HISTORY OF CROHNS, INSULIN DEPENDENT DIABETES MELLITUS, AUTO IMMUNE HEPATITS, HYPERTENSION, HIGH CHOLESTEROL. ADMITTED FOR CHEST PAIN. DENIES ANY PAIN AT TIME OF TESTING. PHYSICIAL EXAMINATION: RESTING B.P.: 121/86 RESTING H.R.: 60 RESTING EKG: NORMAL SINUS RHYTHM, LEFT AXIS. PROTOCOL: LEXISCAN EXERCISE TIME: 3:30 B.P. AT PEAK STRESS: 112/81 IMPRESSION: LEXISCAN STRESS TEST PERFORMED. CARDIOLITE INJECTED PER PROTOCOL. NO SUPRAVENTRICULAR TACHYCARDIA, NO VENTRICULAR TACHYCARDIA, NO ARRHYTHMIA NOTED. PATIENT DENIED CHEST PAIN. TOLERATED WELL. SEE NUCLEAR MEDICINE REPORT. NON-DIAGNOSTIC ELECTROCARDIOGRAM WITH LEXISCAN STRESS.
--- NOTE | 2019-07-07 09:53 | RAD REPORT ---
EXAM DESCRIPTION: NM - Rest Stress Cardiac Imaging - 07/07/2019 9:39 am CLINICAL HISTORY: Chest pain COMPARISON: None. TECHNIQUE: The patient was administered 10.8 mCi of Tc 99m Sestamibi prior to resting SPECT imaging of the heart. The patient was then administered 30.1 mCi of Tc 99m Sestamibi following exercise or ph armacologic stress. Multiplanar SPECT images were reviewed. FINDINGS: The end diastolic volume is 69 ml, the end systolic volume is 27 ml, and the ejection frac tion is 62 %. No stress-induced ischemic changes are identifiable. Very slight decrease in activity along the anter oseptal wall at the apex is not clearly different between the rest and stress sequencing. This is pro bably attenuation artifact. No definitive scarring. IMPRESSION: No stress-induced ischemia or definitive site of myocardial scarring. Ventricular volumes and ejection fraction are well within normal limits.
--- NOTE | 2019-07-07 10:11 | ECHO ---
HEIGHT: 5 ft 7 in WEIGHT: 170 lb 0 oz DATE OF STUDY: 07/07/[address]: Lobo Hair MD 2-DIMENSIONAL: YES M.MODE: YES DOPPLER: YES COLOR FLOW: YES TDS: NO PORTABLE: NO DEFINITY: NO BUBBLE STUDY: NO DIAGNOSIS: ANGINA CARDIAC HISTORY: CATHERIZATION: NO SURGERY: NO PROSTHETIC VALVE: NO PACEMAKER: NO MEASUREMENTS (cm) DIASTOLIC (NORMALS) SYSTOLIC (NORMALS) IVSd 1.1 (0.6-1.2) LA Diam 2.9 (1.9-4.0) LVEF 63% LVIDd 3.6 (3.5-5.7) LVIDs 2.4 (2.0-3.5) %FS 33% LVPWd 1.1 (0.6-1.2) Ao Diam 2.9 (2.0-3.7) 2 DIMENSIONAL ASSESSMENT: RIGHT ATRIUM: NORMAL LEFT ATRIUM: NORMAL RIGHT VENTRICLE: NORMAL LEFT VENTRICLE: NORMAL TRICUSPID VALVE: NORMAL MITRAL VALVE: NORMAL PULMONIC VALVE: NORMAL AORTIC VALVE: NORMAL PERICARDIAL EFFUSION: NONE AORTIC ROOT: NORMAL LEFT VENTRICULAR WALL MOTION: NORMAL DOPPLER/COLOR FLOW: NORMAL COMMENTS: NORMAL 2D ECHOCARDIOGRAM WITH DOPPLER. TECHNOLOGIST: Jose BOLDEN
[2019-07-07] MEDS ORDERED: HYDROCODONE/APAP 5/325 MG TAB PO ONE (10:51)
[2019-07-07] MEDS ORDERED: LOPERAMIDE HCL 2 MG CAPSULE PO STA (10:52)
--- NOTE | 2019-07-07 13:21 | CON ---
Chief Complaint: Chest pain. History Of Present Illness: Mrs. Campos has been having mild chest pain but more an issue of being ve ry fatigued when she exerts herself just a little bit. She has underlying diabetes and Crohn disease and hypertension. Outpatient Medications: Insulin, losartan, mercaptopurine, budesonide, metoprolol, promethazine, Far xiga, amitriptyline, Entyvio. Allergies: SHE IS ALLERGIC TO INFLIXIMAB, HYDROMORPHONE, MORPHINE, AND REMICADE. Social History: She uses no tobacco, no alcohol, no illegal drugs. Physical Examination: General: 5 feet 7 inches, 170 pounds. Alert, oriented, pleasant, not in distress. Lungs: Clear. Heart: Within normal limits. Abdomen: Soft. Extremities: Palpable pulses. No cyanosis, clubbing, or edema. Diagnostic Studies: Her electrocardiogram is significant for leftward axis and questionable anterior infarct. It is no change from an EKG in January 2019. Recommendations: The patient will have an echocardiogram and nuclear stress test. If those make us concerned about her coronary heart disease or other issues with her heart, we will proceed with heart catheterization. So far, things look favorable for her. Thank you very much for your kind referral of Mrs. Campos. I will follow her with you. TOMAS/DAVE Voice ID: [id number] Report ID: [id number]
--- NOTE | 2019-07-07 14:15 | RAD REPORT ---
EXAM DESCRIPTION: CT - Chest For Pe Angio - 07/07/2019 1:37 pm CLINICAL HISTORY: elevated ddimer elevated ddimer , chest pain COMPARISON: CTANGIO CHEST FOR PE dated 07/27/2007; Chest Pa And Lat (2 Views) dated 07/06/2019 TECHNIQUE: Dynamically enhanced 3 mm thick images of the chest were obtained during administration o f approximately 150mL Isovue 370 IV contrast. Coronal and oblique MIP reconstruction images were gene rated and reviewed. Exam utilizes a protocol to evaluate the pulmonary arterial tree. All CT scans are performed using dose optimization technique as appropriate and may include automated exposure control or mA/KV adjustment according to patient size. FINDINGS: No pulmonary emboli are identified. The aorta as imaged shows no acute or suspicious finding. No pericardial thickening or effusion. No focal mass or consolidation. Interstitial markings are prominent. There are some scattered areas o f hazy ground-glass opacification. No pleural effusion or pleural thickening. No mediastinal or hilar suspicious masses. No chest wall masses or abnormal axillary lymphadenopathy. IMPRESSION: No pulmonary emboli identified. Lung findings suggest a mild edema or infiltrate. No focal mass or consolidation.
[2019-07-07] MEDS ORDERED: FENTANYL CITR 100 MCG/2 ML IV PRN (17:10)
[2019-07-07] MEDS ORDERED: LOPERAMIDE HCL 2 MG CAPSULE PO PRN (17:10)
[2019-07-07] MEDS: NA CHLORIDE 0.9% 1,000 ML IV SCH (17:52)
[2019-07-07] MEDS: AMITRIPTYLINE 50 MG TAB PO SCH (19:59)
--- NOTE | 2019-07-08 00:38 | PN ---
Date of Progress Note: 07/07/2019 Subjective: Patient was seen this morning for followup. She was lying in bed, not in any distress. Denied any new complaints. Continued to have intermittent chest pain overnight, but not as bad as melonie efore as she reports. No other new complaints reported when I saw her this morning. Objective: Vital Signs: Reviewed. HEENT: Examination unremarkable. Lungs: Clear to auscultation. Heart: Sounds normal. Abdomen: Soft. Bowel sounds normal. No guarding, rigidity, tenderness, or distention. Extremities: No leg edema. Test Results: Echocardiogram was unremarkable, normal ejection fraction. Stress test came back nega tive for stress-induced ischemia and CAT scan of the chest was negative for pulmonary embolism. Ther e were some increased interstitial lung markings noted, but clinically patient does not have any sign s or symptoms of congestive heart failure or pneumonia. Impression: 1.Chest pain. 2.Hypertension. 3.Diabetes mellitus. 4.Mixed hyperlipidemia. 5.Crohn disease, acute exacerbation. Plan: Our plan was to discharge her to go home today, but the patient started to have abdominal pain and diarrhea and this is consistent with her exacerbation of Crohn disease. She did not feel comfor table going home because of this and she normally ends up spending few days in the hospital when she has flare-up like this. She was given oral pain medication which did not help to control the pain, s o we started her on IV pain medication. Antidiarrheal medication was ordered. Stool was ordered for C diff and culture, and GI consultation was requested from her director river restoration, Dr. Shah. I wi ll see her tomorrow for followup. Considering her allergies, IV fentanyl was ordered for pain control. CASPER/MODL Voice ID: [id number] Report ID: [id number]
[2019-07-08 06:11] LABS: BUN Blood Urea Nitrogen 10 mg/dL (7-18); Bicarbonate 27 mmol/L (21-32); Glucose Level 148 mg/dL (74-106); Potassium 3.8 mmol/L (3.5-5.1); Sodium Level 143 mmol/L (136-145)
[2019-07-08] MEDS: NA CHLORIDE 0.9% 1,000 ML IV SCH (07:26)
[2019-07-08] MEDS: INSULIN -REGULAR HUMAN 50 UNIT/0.5 ML ML SQ SCH (07:30)
[2019-07-08] MEDS: BUDESONIDE, MICRONIZED 3 MG CAP PO SCH (08:37)
[2019-07-08] MEDS: ASPIRIN EC 81 MG TAB PO SCH (08:37)
[2019-07-08] MEDS: LOSARTAN POTASSIUM 50 MG TABLET PO SCH (08:38)
[2019-07-08] MEDS: METOPROLOL TAR 50 MG TAB PO SCH (08:38)
[2019-07-08 09:00] VITALS: BP 108/70; TEMP 98
[2019-07-08] MEDS: HOME MED 1 EA UNK (Dapagliflozin Propanediol [Farxiga] 10 MG) PO SCH (09:00)
[2019-07-08] MEDS ORDERED: POTASSIUM CL SA 10 MEQ TAB PO ONE (09:00)
[2019-07-08] MEDS: MERCAPTOPURINE 50 MG PO SCH (09:00)
[2019-07-08 12:04] VITALS: O2SAT 95
--- NOTE | 2019-07-09 02:53 | DS ---
Date of Discharge: 07/08/2019 Disposition: Discharged to go home. Physical Examination: HEENT: Unremarkable. Lungs: Clear to auscultation. Heart: Heart sounds normal. Abdomen: Soft, bowel sounds normal. No guarding, rigidity, tenderness, or distention. Extremities: No leg. Laboratory Data: Today, sodium 143, potassium 3.8, chloride 110, bicarb 27, BUN 10, creatinine 0.65, glucose 148. Discharge Medications And Instructions: 1.Continue all prior home medications. 2.Follow up at my office a week after next. 3.Take [id number] Prilosec 20 mg p.o. daily and aspirin 81 mg p.o. daily with food. Hospital Course: This is a 54-year-old pleasant female patient who was admitted to the hospital with chest pain. Please see dictated H and P for more information. After the patient was evaluated, her workup included routine blood work. Cardiac enzymes were negative, and Cardiology consultation was requested. Patient had an echocardiogram, which came back unremarkable. Stress test was negative fo r stress-induced ischemia. CT scan of the chest per PE protocol was negative for pulmonary embolism. Yesterday, all the cardiac tests were completed and my plan was to discharge her to go home, but be fore discharge she started to have abdominal pain and diarrhea, so she did not feel comfortable going home because of her underlying history of Crohn disease and she was given oral pain medication that did not help her, so we started her on IV pain medication and anti-diarrheal medication. Overnight, her condition has improved and this morning when I saw her she was feeling much better back to her no rmal self and told me that she is ready to go home today. She was made aware of all her test results and the patient was discharged to go home in stable condition. Final Diagnoses: 1.Chest pain. 2.Mixed hyperlipidemia. 3.Hypertension. 4.Type 2 diabetes mellitus with hyperglycemia. 5.Crohn disease. CASPER/MODL Voice ID: [id number] Report ID: [id number]
== END 2019-07-08 09:17 | disposition home or self-care (01) ==
LOC: 2ND 13:13 → INTOOBSV 13:13
PROVIDERS: ADMIT Internal Medicine; ATTEND Internal Medicine
DX: R07.9 Chest pain, unspecified (principal); E78.2 Mixed hyperlipidemia; I10 Essential (primary) hypertension; E11.65 Type 2 diabetes mellitus with hyperglycemia; K50.90 Crohn's disease, unspecified, without complications
CPT/HCPCS: 93005; 93017; 93306; 85025; 80048; 36415 ×2; 83735; 82550; 82947 ×7; 85379; 84484; 82553; 80053; 71275; 71046; 78452; Q9967; J1650; J3010; J2785; J7030 ×2; A9500; G0378 ×4; Q0169

== ENCOUNTER 2020-04-05 13:27 | Emergency (ER) | payer BC ==
[2012-02-15 12:40] VITALS: BP 95/64
--- OUTSIDE RECORDS SUMMARY | 2020-04-05 13:30 | XMS REPORT | Clinical Summary ---
:1965 Author Organization [facility] Address [address] [place] [address] Care Team Providers Name Role Phone Lobo Hair MD Primary Care Provider Allergies Active Allergy Reactions Severity Noted Date Comments Hydromorphone (Bulk) Hives 09/13/2015 Infliximab Other (See Comments) 09/13/2015 Sever h igh blood pressure Medications Not on file Active Problems Problem Noted Date Elevated liver enzymes 09/13/2015 Last Assessment & Plan: Review of laboratory data suggest hepato cellular pattern of liver injury since 2012, also patient reports they have been abno rmal before 2012 as well. Comprehensive work up for other etiology of elevated liver enzymes positive for ITZ (1:40) and ASCA (31.9). Negative AMA, ASMA, ceruloplasmi n, ferritin, alpha-1 antitrypsin, LKM-1 and hepattis. Positive ITZ and history of cr ohn's diseases raises possibility of autoimmune hepatitis. However liver biop sy from 2013 according to patient history showed fatty liver without evidence of A IH. We will request liver biopsy and review in pathology conference. Normal ALP and MRCP are against PSC/PBC. Likely etiology for elevated liver enzyme is combine fatty l iver and possible drug induced liver injury. It will be difficult to predict which me dication causing DILI. Currently recommend to continue all crohn's medication. We will repeat comprehensive lab work today. Crohn disease 09/13/2015 Last Assessment & Plan: She is under care of Dr. Shah. Current ly on Entyvio every 8 week, 6-MP 50 mg daily and Prednisone as needed at the time of flare. Diabetes mellitus type 2, uncomplicated 09/13/2015 Last Assessment & Plan: Diabetes is a risk factor for fatty live r diseases. We discussed strict risk factor modification. Continue current care of p tiburcio and PCP follow up. Hypertension 09/13/2015 Last Assessment & Plan: BP elevated. We recommend to follow up w [facility] PCP. Immunity status testing 09/13/2015 Last Assessment & Plan: All patients with chronic liver disease, regardless of etiology, should be immunized to prevent hepatitis A and hepatitis B if they are not already immune. We will test for immunity to both viruses - [facility] will follow. Screening for cancer 09/13/2015 Last Assessment & Plan: Colonoscopy 2013, according to patient showed patchy inflammation. Continue follow up with Dr. Shah for screening colonoscopy. Continue well woman exam. Social History Tobacco Use Types Packs/Day Years Used Date Never Assessed Sex Assigned at Date Recorded Not on file Last Filed Vital Signs Not on file Plan of Treatment Not on file Results Not on fileafter 04/05/2019 Insurance Payer Benefit Plan / Subscriber ID Effective Dates Phone Addre ss Type Group AETNA - [place] AETNA OPEN ACCESS [id number] 2004-Present HMO/POS CARE HMO NAP [phone] (Work)
== END 2020-04-05 13:51 | disposition left against medical advice (07) ==
LOC: ER 13:27
DX: Z02.9 Encounter for administrative examinations, unspecified (principal)

== ENCOUNTER 2020-04-05 18:16 | Inpatient (IN) | payer BC ==
--- OUTSIDE RECORDS SUMMARY | 2020-04-05 18:19 | XMS REPORT | Clinical Summary ---
:1965 Author Organization [facility] Address [address] [place] [address] Care Team Providers Name Role Phone Lobo [...] elevated. We recommend to follow up w [facility] PCP. Immunity status testing 09/13/2015 Last Assessment & Plan: All patients with chronic liver disease, regardless of etiology, should be immunized to prevent hepatitis A and hepatitis B if they are not already immune. We will test for immunity to both viruses - [facility]. Screening for cancer 09/13/2015 [...] Group AETNA - [place]GD AETNA OPEN ACCESS [id number] 2004-Present HMO/POS CARE HMO NAP [phone] (Work)
[2020-04-05] MEDS ORDERED: D50W 25 GM/50 ML SYRINGE IV PRN (19:40)
[2020-04-05] MEDS ORDERED: GLUCAGON 1 MG/VIAL IM PRN (19:40)
[2020-04-05] MEDS ORDERED: cloNIDine HCL 0.1 MG TAB PO PRN (19:56)
[2020-04-05] MEDS ORDERED: ACETAMINOPHEN 500 MG TAB PO PRN (19:58)
[2020-04-05 20:11] LABS: Absolute Lymphocytes (CBC) 3.7 K/uL (0.7-4.9); Basophils % 0.9 % (0-1.3); Hematocrit 47.2 % (36.0-45.0); Lymphocytes % 27.7 % (15.3-44.8); MPV 9.4 fL (7.6-11.3); RBC Red Blood Cell Count 5.54 M/uL (3.86-4.86)
[2020-04-05] MEDS: PROMETHAZINE INJ 25 MG/ML AMP IV PRN (20:25)
[2020-04-05] MEDS: MEPERIDINE HCL 25 MG/ML SYR IV PRN (20:25)
[2020-04-05] MEDS: AMITRIPTYLINE 50 MG TAB PO SCH (20:26)
[2020-04-05] MEDS: METOPROLOL TAR 50 MG TAB PO SCH (20:26)
[2020-04-05] MEDS: NA CHLORIDE 0.9% 1,000 ML IV SCH (20:27)
[2020-04-05] MEDS: Levofloxacin500mg IV 500 MG/100 ML BAG IV SCH (20:27)
[2020-04-05 20:32] LABS: Albumin 4.1 g/dL (3.4-5.0); Bilirubin Total 0.4 mg/dL (0.2-1.0); Potassium 3.5 mmol/L (3.5-5.1); Protein, Total 8.1 g/dL (6.4-8.2)
--- NOTE | 2020-04-05 20:43 | RAD REPORT ---
EXAM DESCRIPTION: RAD - Abdomen W Erect - 04/05/2020 8:27 pm CLINICAL HISTORY: abd pain COMPARISON: ABDOMEN W ERECT dated 02/10/2012 TECHNIQUE: Supine and upright views of the abdomen were obtained. FINDINGS: Bowel gas pattern is nonspecific. No free air or pneumatosis. No large or small bowel abno rmal dilatation identified. Cholecystectomy clips are seen in the right upper quadrant. There are no suspicious calcifications. IMPRESSION: Negative two-view examination as detailed.
[2020-04-05] MEDS: ENOXAPARIN 40 MG/0.4 ML SQ SCH (21:00)
[2020-04-05] MEDS: INSULIN -REGULAR HUMAN 50 UNIT/0.5 ML ML SQ SCH (21:00)
[2020-04-05] MEDS ORDERED: POTASSIUM CL SA 10 MEQ TAB PO ONE (23:10)
[2020-04-05 23:11] VITALS: BMI 27.3
[2020-04-06] MEDS: METRONIDAZOLE 500mg IVPB 500 MG/100 ML BAG IV SCH ×3 (01:05→16:44)
[2020-04-06] MEDS: METHYLPREDNISOLONE 40 MG INJ IV SCH ×4 (01:06→17:52)
[2020-04-06] MEDS: PROMETHAZINE INJ 25 MG/ML AMP IV PRN ×5 (04:09→22:31)
[2020-04-06] MEDS: MEPERIDINE HCL 25 MG/ML SYR IV PRN ×5 (04:09→22:31)
[2020-04-06] MEDS: NA CHLORIDE 0.9% 1,000 ML IV SCH ×3 (05:15→17:58)
[2020-04-06 05:48] LABS: Potassium 4.3 mmol/L (3.5-5.1)
--- NOTE | 2020-04-06 08:25 | HP ---
Date of Admission: 04/05/2020 Chief Complaint: Abdominal pain, nausea, vomiting, and diarrhea. History Of Present Illness: This is a 54-year-old pleasant female patient with history of Crohn's di sease, who has acute constipation with Crohn disease from time to time requiring hospital admission. Today, the patient call my office and reported having 1 of such acute exacerbation, requesting admis alma to the hospital. I did talk to her well control instructor, Dr. Shah, who is treating her for this Crohn's disease and she gets IV infusion therapy every 6 weeks. She was getting every 8 weeks, whkelli mark was not controlling her symptoms as well, so now she is getting it every 6 weeks and it is a Entyvi o. Her next dose is scheduled to be given tomorrow, but meanwhile as of yesterday rather she started to have abdominal pain, mostly on the right side, which is continuous, associated with chills but no fever. Denies any blood in stool or any hematemesis. She has very frequent nausea, vomiting, and d iarrhea. Diarrhea frequency is a lot more than vomiting and diarrhea is anywhere between 2-4 times e very hour. She has very poor appetite, in fact all day today she has not had anything to eat or drin k except few sips of water. She feels weak. After she was evaluated at the office, she was admitted to the hospital for further evaluation and management of this problem. Allergies: TO DILAUDID CAUSING HIVES, REMICADE CAUSING INCREASED BLOOD PRESSURE. Medications: List reviewed. Review of Systems: GI: As mentioned above. Constitutional: As mentioned above. All other systems reviewed and negative. Past Medical History: Significant for diabetes mellitus for which she is under care of her endocrino logist, Dr. Bullard in [place]. Past medical history also significant for hypertension, mixed hyperli pidemia, abnormal liver function test which is due to autoimmune hepatitis, Crohn's disease, and depr ession. Past Surgical History: Significant for cholecystectomy and hysterectomy. Family History: Father , had hypertension hyperlipidemia, multiple myeloma. Mother had heart di sease. Otherwise family history is not pertinent. Social History: Negative for smoking. Use of alcohol very rarely. Physical Examination: Vital Signs: When I saw her at office blood pressure 156/115, pulse 115, temperature 97.3, respirato ry rate 15, weight 176.6 pounds, height 67 inches. General: The patient appears weaker than usual, not in any distress. HEENT: Head atraumatic, normocephalic. Conjunctivae nonerythematous. Sclerae white. Mouth, no thr ush or edema noted. Ears/Nose, no mass, lesion, discharge noted. Neck: Supple. No JVD, lymph nodes, bruit, thyromegaly noted. Lungs: Bilateral good equal air entry. Clear to auscultation. No rhonchi. No rales. Heart: Normal heart sounds, no murmur or gallop. Abdomen: Shows significant tenderness in right upper and right lower quadrant. No rebound tendernes s. Bowel sounds present and normal. Abdomen is not distended. No guarding. No rigidity. No hepat osplenomegaly. Extremities: No leg edema. No calf tenderness. Skin: No rash, ulcer, cellulitis. Lymphatics: No lymph node enlargement in neck, supraclavicular, infraclavicular region. Neuro: No focal neurological deficit. Chest: Unremarkable. External Genitalia: Deferred. Rectal: Deferred. Laboratory Data: White count 13.2, hemoglobin 16.5, platelets 290. Sodium 143, potassium 3.5, chlor jose david 110, bicarb 24, BUN 14, creatinine 0.87, glucose 184. Hemoglobin A1c 8.7, AST 85, ALT 153. Abdo maite x-ray negative for any acute changes. Impression: 1.Crohn's disease, with acute exacerbation. 2.Hypokalemia. 3.Type 2 diabetes mellitus, uncontrolled. 4.Hypertension. 5.Mixed hyperlipidemia. 6.Autoimmune hepatitis. 7.Depression. Plan: Admit the patient to hospital for further evaluation and management of this problem. The inocente ent is appropriate for inpatient and is expected to spend 2 midnights in hospital. We will go ahead and consult her well control instructor, Dr. hSah and details were discussed with him. We will keep her n.p.o. except medications and few sips of water and ice chips as needed. Home medications will be c ontinued per order. Diabetes will be managed with sliding scale insulin. We will continue her antih ypertensive medication as well as clonidine for p.r.n. use and it was ordered. We will start empiric antibiotic Levaquin and Flagyl and I start IV steroid. Stool test was ordered for Clostridium diffi cile toxin as well as stool culture. Pain medications and symptomatic treatment for nausea and vomit ing will be given. IV fluid will be given and I will see her tomorrow for followup. Details and dale n of treatment discussed with her. CASPER/DAVE Voice ID: [id number]
[2020-04-06] MEDS: INSULIN -REGULAR HUMAN 50 UNIT/0.5 ML ML SQ SCH ×4 (08:37→21:07)
[2020-04-06] MEDS: METOPROLOL TAR 50 MG TAB PO SCH ×2 (08:39→21:08)
[2020-04-06] MEDS: LOSARTAN POTASSIUM 50 MG TABLET PO SCH (08:39)
[2020-04-06] MEDS: INSULIN DEGLUDEC 12 UNIT SQ SCH (08:40)
[2020-04-06 14:37] LABS: C.diff Antigen/Toxin Ag neg : Tox neg (NEG : NEG)
[2020-04-06] MEDS ORDERED: HYDROCORTISONE ACETATE 25MG SUPP PR ONE (18:30)
[2020-04-06] MEDS: ENOXAPARIN 40 MG/0.4 ML SQ SCH (21:00)
[2020-04-06] MEDS: Levofloxacin500mg IV 500 MG/100 ML BAG IV SCH (21:06)
[2020-04-06] MEDS: AMITRIPTYLINE 50 MG TAB PO SCH (21:08)
--- NOTE | 2020-04-07 00:49 | PN ---
Date of Progress Note: 04/06/2020 Subjective: The patient was seen this morning for followup. Denies any new complaints. Overall, eric alberts feels somewhat better compared to yesterday. No more nausea or vomiting. Had diarrhea during nigh ttime, about 5 bowel movements overnight as she reported. No bleeding. Objective: Vital Signs: Reviewed. HEENT: Unremarkable. Lungs: Clear to auscultation. Heart: Sounds normal. Abdomen: Soft. Bowel sounds normal. No guarding or rigidity. No distention. Presence of tenderne ss on the right side of the abdomen, which is the right upper quadrant and right lower quadrant, but it is better today than yesterday. No rebound tenderness. Extremities: No leg edema. Laboratory Data: Sodium 141, potassium 4.3, chloride 110, bicarb 24, BUN 16, creatinine 0.78, glucos e 205. Impression: 1.Crohn disease, with acute exacerbation. 2.Hypertension. 3.Type 2 diabetes mellitus. Plan: We will go ahead and continue current medication. Continue to follow with Dr. Shah. We orquidea l continue IV antibiotic, IV steroid. Pain medications per order, starting today. We will start her on clear liquid diet. Ambulation was encouraged. Continue DVT prophylaxis with Lovenox. I will see her tomorrow for followup. Stool test is pending. CASPER/MODL Voice ID: [id number] Report ID: [id number]
[2020-04-07] MEDS: METHYLPREDNISOLONE 40 MG INJ IV SCH ×4 (01:02→17:17)
[2020-04-07] MEDS: METRONIDAZOLE 500mg IVPB 500 MG/100 ML BAG IV SCH ×3 (01:02→17:17)
[2020-04-07] MEDS: MEPERIDINE HCL 25 MG/ML SYR IV PRN ×5 (04:02→21:48)
[2020-04-07] MEDS: PROMETHAZINE INJ 25 MG/ML AMP IV PRN ×5 (04:03→21:48)
[2020-04-07] MEDS ORDERED: TRAMADOL HCL 50 MG TAB PO PRN (07:37)
[2020-04-07] MEDS: METOPROLOL TAR 50 MG TAB PO SCH ×2 (08:44→20:12)
[2020-04-07] MEDS: LOSARTAN POTASSIUM 50 MG TABLET PO SCH (08:44)
[2020-04-07] MEDS: HYDROCORTISONE ACETATE 25MG SUPP PR SCH (08:45)
[2020-04-07] MEDS: INSULIN -REGULAR HUMAN 50 UNIT/0.5 ML ML SQ SCH ×4 (08:45→20:08)
[2020-04-07] MEDS: INSULIN DEGLUDEC 12 UNIT SQ SCH (08:45)
[2020-04-07] MEDS: NA CHLORIDE 0.9% 1,000 ML IV SCH ×2 (11:22→21:46)
--- NOTE | 2020-04-07 19:07 | PN ---
Date of Progress Note: 04/07/2020 Subjective: The patient was seen this morning for followup. She was lying in bed, not in distress. Reported that she did have diarrhea up until yesterday morning time or so, but as of yesterday after noon, she did not have any more diarrhea. She still has lot of nausea and is requesting to increase dose of prednisone from 12.5 mg to 25 mg. Much better. Objective: Vital Signs: Reviewed. HEENT: Unremarkable. Lungs: Clear to auscultation. Heart: Sounds normal. Abdomen: Soft. Bowel sounds normal. No guarding, rigidity, distention. Presence of tenderness in right upper and right lower quadrant, but better today than last couple of days. Extremities: No leg edema. Impression: 1.Crohn disease, with acute exacerbation. 2.Hypertension. 3.Diabetes mellitus. Plan: We did discuss with her this morning about advancing her diet from clear liquid diet to soft d iet, and if she tolerates soft diet for breakfast and lunch, and if she feels comfortable, then plan to go home and she was agreeable with this plan. Just a while ago I talked to nurse and nurse inform ed me that the patient had very small amount of lunch as per diet ordered, which was soft diet and sh e immediately started to have diarrhea after that, and reported that she is not feeling good. So wit h this, we will not discharge her today and we will go ahead and stop the soft diet and start her on clear liquid diet again. We will continue her antibiotics, steroids, DVT prophylaxis, and I will see her tomorrow for followup. CASPER/MODL Voice ID: [id number] Report ID: [id number]
[2020-04-07] MEDS: Levofloxacin500mg IV 500 MG/100 ML BAG IV SCH (20:09)
[2020-04-07] MEDS: AMITRIPTYLINE 50 MG TAB PO SCH (20:12)
[2020-04-07] MEDS: ENOXAPARIN 40 MG/0.4 ML SQ SCH (20:13)
[2020-04-07 23:44] VITALS: O2SAT 100
[2020-04-08] MEDS: METHYLPREDNISOLONE 40 MG INJ IV SCH ×3 (00:59→11:50)
[2020-04-08] MEDS: METRONIDAZOLE 500mg IVPB 500 MG/100 ML BAG IV SCH ×2 (01:01→08:37)
[2020-04-08] MEDS: MEPERIDINE HCL 25 MG/ML SYR IV PRN ×3 (02:54→12:27)
[2020-04-08] MEDS: PROMETHAZINE INJ 25 MG/ML AMP IV PRN ×3 (02:54→12:27)
[2020-04-08] MEDS: INSULIN -REGULAR HUMAN 50 UNIT/0.5 ML ML SQ SCH ×2 (07:30→12:26)
[2020-04-08] MEDS: NA CHLORIDE 0.9% 1,000 ML IV SCH (08:00)
[2020-04-08] MEDS: HYDROCORTISONE ACETATE 25MG SUPP PR SCH (08:32)
[2020-04-08] MEDS: METOPROLOL TAR 50 MG TAB PO SCH (08:32)
[2020-04-08] MEDS: LOSARTAN POTASSIUM 50 MG TABLET PO SCH (08:32)
[2020-04-08] MEDS: INSULIN DEGLUDEC 12 UNIT SQ SCH (08:33)
[2020-04-08 09:20] VITALS: TEMP 97
[2020-04-08 14:27] VITALS: BP 122/80
--- NOTE | 2020-04-09 09:55 | DS ---
Date of Discharge: 04/08/2020 Disposition: Discharged to go home. Physical Examination: HEENT: Unremarkable. Lungs: Clear to auscultation. Heart: Sounds normal. Abdomen: Soft. Bowel sounds normal. No guarding, rigidity, tenderness, or distention. Extremities: No leg edema. Laboratory Data: Upon admission; sodium 143, potassium 3.5, chloride 110, bicarb 24, BUN 14, creatin ine 0.87, glucose 197. Hemoglobin A1c 8.7. AST 85, ALT 153, total bilirubin 0.4. Discharge Medications And Instructions: 1.Continue all prior home medications. 2.Phenergan 25 mg p.o. q.6 hours p.r.n. for nausea, vomiting. 3.Levaquin 500 mg p.o. daily for 1 week. 4.Flagyl 500 mg 3 times a day for 1 week. 5.Prednisone 10 mg. The patient to take 3 tablets daily for 4 days, then 2 tablets daily for 4 days , then 1 tablet daily for 4 days, then 1/2 tablet daily for 4 days, then stop. 6.Follow up at my office next week on . The patient to call for appointment. 7.Tramadol 50 mg 1 tablet p.o. q.6 hours p.r.n. for pain, prescription given for 30 tablets. Hospital Course: A 54-year-old female patient admitted to the hospital with acute exacerbation of he r Crohn disease. Please see dictated H and P for more information. After the patient was evaluated at the office, she was admitted to the hospital. She has chronic problem with Crohn disease. She is on IV infusion therapy with Dr. Shah, her home care coordinator. She was getting this infusion about every 8 weeks, but due to her symptoms relief not lasting for full 8 weeks, Dr. Shah changed her i nfusion therapy to every 6 weeks and she was doing fine until recently. She started to have abdomina l pain, nausea, vomiting, and diarrhea due to flare-up of this Crohn disease and Dr. Shah contacted me, requesting admission to hospital and the patient also contacted my office requesting to admissio . After she was evaluated at office, we made arrangements for her to be admitted to the hospital. After she was admitted, initially we kept her n.p.o., IV fluid was given for volume depletion proble m as she has not had anything to eat or drink for almost 24 hours or so because of these symptoms. S he was also given IV pain medication, IV antibiotic which was Levaquin and Flagyl and IV steroid medi cation was started. Overall, her condition improved and day after admission, we started her on clear liquid diet and yesterday we started her on soft diet, but she did not tolerate well and started to have worsening of diarrhea again, which actually had improved after the admission. So yesterday afte r she had worsening of diarrhea, we decided to go ahead and put her back on clear liquid diet with co ntinuation of all other current medications and overall her condition has improved. This morning whe n I saw her, she was feeling better. So, what we have decided is to continue clear liquid diet for t his particular and as of Friday to start slowly introducing 1 food item at a time and to adva nce diet really slowly. All these details were discussed with her. The patient feels comfortable go ing home and she was discharged to go home in stable condition. Dr. Shah from GI was consulted dur ing this hospital stay. Her abdominal x-ray was negative for any acute change. Final Diagnoses: 1.Crohn disease. 2.Hypertension. 3.Mixed hyperlipidemia. 4.Autoimmune hepatitis. 5.Type 2 diabetes mellitus, uncontrolled. CASPER/MODL Voice ID: [id number] Report ID: [id number]
== END 2020-04-08 16:40 | disposition home or self-care (01) | DRG 387 ==
LOC: 2ND 18:16
PROVIDERS: ADMIT Internal Medicine; ATTEND Internal Medicine
DX: K50.90 Crohn's disease, unspecified, without complications (principal); E11.9 Type 2 diabetes mellitus without complications; F32.9 Major depressive disorder, single episode, unspecified; E87.6 Hypokalemia; K75.4 Autoimmune hepatitis; E78.2 Mixed hyperlipidemia; I10 Essential (primary) hypertension; E78.5 Hyperlipidemia, unspecified; Z88.8 Allergy status to other drugs, medicaments and biological substances; Z90.49 Acquired absence of other specified parts of digestive tract; Z90.710 Acquired absence of both cervix and uterus; Z20.828 Contact with and (suspected) exposure to other viral communicable diseases
CPT/HCPCS: 36415; 74019; 80048; 80053; 82947; 83036; 83735; 85025; 87045; 87046; 87324; 87449; J1650; J2175; J2550; J2920; J7030; U0003

== ENCOUNTER 2022-06-06 13:52 | Inpatient (IN) | payer BC ==
[2022-06-06 15:09] LABS: SARS-CoV-2 Antigen Rapid Res Negative (Negative)
--- OUTSIDE RECORDS SUMMARY | 2022-06-06 15:21 | XMS REPORT | Continuity of Care Document ---
:1965 Author Organization [facility] t Address [facility] [place] [address] Care Team Providers Name Role Phone Lobo Hair MD Primary Care Physician Problems Condition Condition Condition Status Onset Resolution Last Treating Co mments Source Name Details Category Date Date Treatment Clinician Date Diabetes Diabetes Disease Active Last [facility] mellitus 09-12 Ass[facility]men Jojo es type 2, type 2, 00:00: t & Plan: [facility] of this note might be different from the original. Diabetes is a risk factor for fatty liver diseases. We discussed strict risk factor modificat ion. Continue current care of plan and PCP follow up. Hypertensi Hypertensi Disease Active Last [facility] on 09-12 [facility] 00:00: t & Plan: Medical [address] [place] [address] g of this note might be different from the original. BP elevated. We recommend to follow up with PCP. Screening Screening Disease Active Last [facility] for cancer for cancer 09-12 [facility] 00:00: t & Plan: Medical 00 [facility] g of this note might be different from the original. [place] py 2013, according to patient showed patchy inflammat ion. Continue follow up with Dr. Shah for screening colonos[place] py.Contin ue well woman exam. Elevated Elevated Disease Active Last [facility] liver liver 09-12 [facility] enzymes enzymes 00:00: t & Plan: Medic al 00 [facility] g of this note might be different from the original. Review of laborator y data suggest hepatocel lular pattern of liver injury since 2012, also patient reports they have been abnormal before 2012 as well. Crescencio pandey work up for other etiology of elevated liver enzymes positive for ITZ (1:40) and ASCA (31.9). Negative AMA, ASMA, cerulopla smin, ferritin, alpha-1 antitryps in, LKM-1 and hepattis. Positive ITZ and history of crohn's diseases raises possibili ty of autoimmun e hepatitis . However liver biopsy from 2013 according to patient history showed fatty liver without evidence of AIH. We will request liver biopsy and review in pathology [facility] e. Normal ALP and MRCP are against PSC/PBC. Likely etiology for elevated liver enzyme is combine fatty liver and possible drug induced liver injury. It will be difficult to predict which medicatio n causing DILI. Currently recommend to continue all crohn's medicatio n. We will repeat crescencio pandey lab work today. Crohn Crohn Disease Active Last [facility] disease disease 4-20 [facility] 00:00: t & Plan: Medical 00 [facility] g of this note might be different from the original. She is under care of Dr. Shah. Currently on Entyvio every 8 week, 6-MP 50 mg daily and Prednison e as needed at the time of flare. Allergies, Adverse Reactions, Alerts Allergy Allergy Status Severity Reaction(s) Onset Inactive Treating Comm ents Source Name Type Date Date Clinician HYDROMOR Allergy Active Hives [facility] PHONE 4-[facility] (BULK) 00:[facility]: Medical 00 Center INFLIXIM Allergy Active Other [facility] AB 4[facility]20 [facility] 00:[facility]: Medical 00 Center Hydromor Drug Active Hives [facility] phone Allergy 4-20 [facility] (Bulk) 00:00: Medical 00 Center Inflixim Propensi Active Other (See Sever [facility] ty to Comments) 4-20 [facility] adverse 00:00: blood Medical reaction 00 pressure Center s Social History Social Habit Start Date Stop Date Quantity Comments Source Sex Assigned At [address] [facility] 00:00:00 [facility]00 [facility] Medications This patient has no known medications. Procedures This patient has no known procedures. Results This patient has no known results.
[2022-06-06] MEDS ORDERED: MEPERIDINE HCL 25 MG/ML SYR IV PRN (16:42)
[2022-06-06] MEDS ORDERED: METOPROLOL TAR 25 MG TAB PO ONE (17:05)
[2022-06-06 17:38] LABS: Absolute Lymphocytes (CBC) 3.5 K/uL (0.7-4.9); Hematocrit 49.8 % (36.0-45.0); Lymphocytes % 31.2 % (15.3-44.8); MCV 87.3 fL (80-100); MPV 9.4 fL (7.6-11.3); RBC Red Blood Cell Count 5.71 M/uL (3.86-4.86)
[2022-06-06 17:56] LABS: Albumin 4.4 g/dL (3.4-5.0); Bilirubin Total 0.4 mg/dL (0.2-1.0); Protein, Total 8.7 g/dL (6.4-8.2)
[2022-06-06 18:05] LABS: Potassium 3.9 mmol/L (3.5-5.1)
[2022-06-06 18:17] VITALS: BMI 25.2
[2022-06-06] MEDS ORDERED: GLUCAGON 1 MG/VIAL IM PRN (18:26)
[2022-06-06] MEDS ORDERED: D50W 25 GM/50 ML SYRINGE IV PRN (18:26)
[2022-06-06] MEDS ORDERED: DEXTROSE 10%-WATER 125 ML IV PRN (18:32)
[2022-06-06] MEDS: METHYLPREDNISOLONE 125 MG INJ IV SCH (18:44)
[2022-06-06] MEDS: FENTANYL CITR 100 MCG/2 ML IV PRN ×2 (18:48→22:46)
[2022-06-06] MEDS: METRONIDAZOLE 500mg IVPB 500 MG/100 ML BAG IV SCH (18:48)
[2022-06-06] MEDS: NA CHLORIDE 0.9% 1,000 ML IV SCH (18:58)
[2022-06-06] MEDS: PROMETHAZINE INJ 25 MG/ML AMP IV PRN (19:04)
[2022-06-06] MEDS: METOPROLOL TAR 50 MG TAB PO SCH (20:42)
[2022-06-06] MEDS: Levofloxacin 750mg IV 750 MG/150 ML BAG IV SCH (20:42)
[2022-06-06] MEDS: INSULIN -REGULAR HUMAN 50 UNIT/0.5 ML ML SQ SCH (20:42)
[2022-06-07] MEDS: METHYLPREDNISOLONE 125 MG INJ IV SCH ×4 (00:41→15:56)
[2022-06-07] MEDS: METRONIDAZOLE 500mg IVPB 500 MG/100 ML BAG IV SCH ×3 (00:42→15:56)
[2022-06-07] MEDS: FENTANYL CITR 100 MCG/2 ML IV PRN (02:41)
[2022-06-07] MEDS: PROMETHAZINE INJ 25 MG/ML AMP IV PRN ×4 (02:54→21:58)
[2022-06-07] MEDS: NA CHLORIDE 0.9% 1,000 ML IV SCH ×2 (05:37→15:55)
[2022-06-07] MEDS ORDERED: ALPRAZOLAM 0.5 MG TABLET PO PRN (06:38)
[2022-06-07] MEDS ORDERED: ESZOPICLONE 2 MG PO SCH (06:45)
--- NOTE | 2022-06-07 07:20 | HP ---
Date of Admission: 06/06/2022 Chief Complaint: Abdominal pain, nausea, vomiting, diarrhea. History Of Present Illness: Ms. Campos is a very pleasant 57 year-old female patient, who came into office today with 3 days history of abdominal pain, nausea, vomiting, diarrhea, and some small amount of blood in stool at times. She also reports having some low-grade fever. She has very poor appetite with these symptoms, not able to keep any food or liquids down, and her fat pressroom worker that she normally sees Dr. Shah is out of town, so she called my office today and was evaluated and decision was made to admit her to hospital for further management of acute exacerbation of her Crohn disease. Medications: List reviewed. Allergies: TO DILAUDID CAUSING HIVES, REMICADE CAUSING INCREASED BLOOD PRESSURE. Review of Systems: Constitutional: As mentioned above. GI: As mentioned above. All other systems reviewed and negative. Past Medical History: Significant for type 2 diabetes mellitus for which she is under care of director university, Dr. Bullard in [place]. Past medical history also significant for hypertension, mixed hyperlipidemia, abnormal liver function tests, Crohn disease, depression. Past Surgical History: Significant for cholecystectomy and hysterectomy. Family History: Father , had hypertension, hyperlipidemia and multiple myeloma. Mother had heart disease. Otherwise, family history is not contributory. Social History: Negative for smoking. Use of alcohol very rarely. Physical Examination: Vital Signs: Temperature 97.5, pulse 112, respiratory rate 16, blood pressure 168/110, oxygen saturation 97%. Height 5 feet 7 inches, weight 161 pounds. General: Awake, alert, oriented, not in distress. HEENT: Head atraumatic, normocephalic. Conjunctivae nonerythematous. Sclerae white. Mouth, no thrush or edema noted. Ears/Nose, no mass, lesion, discharge noted. Neck: Supple. No JVD, lymph nodes, bruit, thyromegaly noted. Lungs: Bilateral good equal air entry. Clear to auscultation. No rhonchi. No rales. Heart: Normal heart sounds, no murmur or gallop. Abdomen: Soft. Bowel sounds normal. No guarding, rigidity. No distention. No hepatosplenomegaly. No bruit. The patient does have tenderness diffusely scattered all over abdomen, but more in upper abdomen than lower abdomen. There is no rebound tenderness and no guarding. Extremities: No leg edema. No calf tenderness. Skin: No rash, ulcer, cellulitis. Lymphatics: No lymph node enlargement in neck, supraclavicular, infraclavicular region. Neuro: No focal neurological deficit. Chest: Unremarkable. External Genitalia: Deferred. Rectal: Deferred. Laboratory Data: White count 11.3, hemoglobin 16.7, platelets 237. Sodium 134, potassium 3.9, chloride 99, bicarb 25, BUN 8, creatinine 0.98, glucose 439, magnesium 2. AST 38, ALT 95, alkaline phosphatase 148, total bilirubin 0.4. COVID-19 test negative. Impression: 1. Crohn disease, with acute exacerbation. 2. Type 2 diabetes mellitus, uncontrolled. 3. Hypertension. 4. Mixed hyperlipidemia. 5. Abnormal liver function test. 6. Depression. Plan: Admit the patient to hospital for further evaluation and management of this problem. The patient is appropriate for inpatient and is expected to spend 2 midnights in hospital. We will go ahead and start her on IV fluids, IV antibiotic which is Levaquin and metronidazole per order. We will go ahead and start IV steroid, also Solu-Medrol 60 mg four times a day. Diabetes will be managed with insulin per order. DVT prophylaxis will be given using Lovenox per order and we will go ahead and give her metoprolol 25 mg 1 time dose upon admission and then 50 mg two times a day per order. Details and plan of treatment discussed with her and I will see her tomorrow morning for followup. She gets her Entyvio infusion every 6 weeks. So far, she was getting it at Dr. Shah's office, but recently she was told that he will no longer be able to do that through his office and she is waiting on her insurance company's approval to get this infusion at [facility] and reports that her last infusion was 6 weeks ago. CASPER/DAVE Voice ID: [id number] [email or web address]
[2022-06-07] MEDS: BREXPIPRAZOLE 1 MG PO SCH (07:25)
[2022-06-07] MEDS: HOME MED 1 EA UNK (Insulin Degludec [Tresiba Flextouch U-200] 200 UNIT/ML Insuln.Pen) SQ SCH (07:26)
[2022-06-07] MEDS: HOME MED 1 EA UNK (Dapagliflozin Propanediol [Farxiga] 10 MG Tablet) PO SCH (07:26)
[2022-06-07] MEDS: MEPERIDINE HCL 25 MG/ML SYR IV PRN ×3 (08:29→21:45)
[2022-06-07] MEDS: ENOXAPARIN 40 MG/0.4 ML SQ SCH (08:30)
[2022-06-07] MEDS: INSULIN -REGULAR HUMAN 50 UNIT/0.5 ML ML SQ SCH ×4 (08:30→21:55)
[2022-06-07] MEDS: METOPROLOL TAR 50 MG TAB PO SCH ×2 (08:30→21:46)
[2022-06-07] MEDS: ESCITALOPRAM 20 MG TAB PO SCH (08:30)
[2022-06-07] MEDS: LOSARTAN POTASSIUM 50 MG TABLET PO SCH ×2 (08:30→21:47)
[2022-06-07] MEDS: Levofloxacin 750mg IV 750 MG/150 ML BAG IV SCH (15:57)
[2022-06-07 18:47] LABS: Potassium 3.8 mmol/L (3.5-5.1)
--- NOTE | 2022-06-07 19:33 | PN ---
Date of Progress Note: 06/07/2022 Subjective: The patient was seen this morning for followup. Her condition has remained unchanged wi th abdominal pain, and she reports that fentanyl does not help much, except very short period of time , she gets some pain relief after that. She does not get much pain relief at all with fentanyl, so s he is requesting different pain medications. In the past, she did use Demerol and that actually has worked better for her as she reports. She has had some nausea overnight and 1 episode of vomiting. Objective: Vital Signs: Reviewed. HEENT: Unremarkable. Lungs: Clear to auscultation. Heart: Sounds normal. Abdomen: Soft. Bowel sounds normal. No guarding, rigidity. No distention. Presence of tenderness noted mostly in the upper half of abdomen. Bowel sounds normal. No distention. No guarding, rigid ity. Extremities: No leg edema. Impression: 1.Crohn disease, with acute exacerbation. 2.Hypertension. 3.Diabetes mellitus. 4.Depression. 5.Abnormal liver function tests. Plan: We will go ahead and continue current IV steroid, IV antibiotic. Diabetes will be managed wit h sliding scale insulin per order, and we will continue current antihypertensive medication per order as well. I will see her tomorrow for followup. The patient has tolerated clear liquid diet very we ll, and she would like to advance her diet, so order was written to advance diet as tolerated. Continue Lovenox for DVT prophylaxis. CASPER/MODL Voice ID: [id number] Report ID: [id number]
[2022-06-07] MEDS: AMITRIPTYLINE 50 MG TAB PO SCH (21:00)
[2022-06-08] MEDS: METRONIDAZOLE 500mg IVPB 500 MG/100 ML BAG IV SCH ×3 (00:15→16:24)
[2022-06-08] MEDS: METHYLPREDNISOLONE 125 MG INJ IV SCH ×4 (00:15→17:55)
[2022-06-08] MEDS: NA CHLORIDE 0.9% 1,000 ML IV SCH ×3 (00:51→16:23)
[2022-06-08] MEDS: MEPERIDINE HCL 25 MG/ML SYR IV PRN ×4 (04:38→22:49)
[2022-06-08] MEDS: ONDANSETRON 4 MG/2 ML VIAL IV PRN (04:38)
[2022-06-08] MEDS: PROMETHAZINE INJ 25 MG/ML AMP IV PRN ×4 (05:29→22:50)
[2022-06-08 07:49] LABS: Potassium 4.7 mmol/L (3.5-5.1)
[2022-06-08] MEDS: METOPROLOL TAR 50 MG TAB PO SCH ×2 (08:51→21:00)
[2022-06-08] MEDS: ESCITALOPRAM 20 MG TAB PO SCH (08:52)
[2022-06-08] MEDS: LOSARTAN POTASSIUM 50 MG TABLET PO SCH ×2 (08:52→21:00)
[2022-06-08] MEDS: INSULIN -REGULAR HUMAN 50 UNIT/0.5 ML ML SQ SCH ×4 (08:52→21:29)
[2022-06-08] MEDS: ENOXAPARIN 40 MG/0.4 ML SQ SCH (08:53)
[2022-06-08] MEDS: BREXPIPRAZOLE 1 MG PO SCH (08:56)
[2022-06-08] MEDS: HOME MED 1 EA UNK (Dapagliflozin Propanediol [Farxiga] 10 MG Tablet) PO SCH (08:56)
[2022-06-08] MEDS: HOME MED 1 EA UNK (Insulin Degludec [Tresiba Flextouch U-200] 200 UNIT/ML Insuln.Pen) SQ SCH (08:57)
--- NOTE | 2022-06-08 16:41 | PN ---
Date of Progress Note: 06/08/2022 Subjective: The patient was seen this morning for followup. Overall, she feels better. Still has a bdominal pain, which is well controlled with Demerol, but it is better than before. She has nausea, had vomited once yesterday, but none today. We still do not have a stool specimen collected for C di ff. Her appetite is very poor. Objective: Vital signs: Reviewed for last 24 hours. HEENT: Unremarkable. Lungs: Clear to auscultation. Heart: Sounds normal. Abdomen: Soft. Bowel sounds normal. No guarding. No rigidity. No distention. Presence of mild t enderness mostly in the upper abdomen. Overall, it is better than before. Extremities: No leg edema. Laboratory Data: Sodium 139, potassium 4.7, chloride 113, bicarb 21, BUN 13, creatinine 0.64, glucos e 365. Impression: 1.Crohn disease, with acute exacerbation. 2.Hypertension. 3.Diabetes mellitus, uncontrolled. Plan: We will go ahead and continue current medications. Continue current IV Solu-Medrol, IV antibi otics. Current pain medication and nausea medicine per order. We will continue Lovenox for DVT prop hylaxis. The patient was encouraged to eat more and our plan is to possibly discharge her to go home tomorrow. CASPER/MODL Voice ID: [id number] Report ID: [id number]
[2022-06-08] MEDS: Levofloxacin 750mg IV 750 MG/150 ML BAG IV SCH (17:54)
[2022-06-08] MEDS ORDERED: INSULIN -REGULAR HUMAN 50 UNIT/0.5 ML ML IV ONE (19:10)
[2022-06-08] MEDS: AMITRIPTYLINE 50 MG TAB PO SCH (21:00)
[2022-06-08] MEDS ORDERED: INSULIN GLARGINE 100 UNIT/ML SQ ONE (21:00)
[2022-06-09 00:32] VITALS: O2SAT 95
[2022-06-09] MEDS: METRONIDAZOLE 500mg IVPB 500 MG/100 ML BAG IV SCH ×2 (01:39→08:17)
[2022-06-09] MEDS: PROMETHAZINE INJ 25 MG/ML AMP IV PRN ×2 (03:59→12:24)
[2022-06-09] MEDS: MEPERIDINE HCL 25 MG/ML SYR IV PRN ×3 (03:59→12:23)
[2022-06-09] MEDS: NA CHLORIDE 0.9% 1,000 ML IV SCH ×3 (04:44→12:24)
[2022-06-09] MEDS: INSULIN -REGULAR HUMAN 50 UNIT/0.5 ML ML SQ SCH ×2 (07:30→11:30)
[2022-06-09] MEDS: HOME MED 1 EA UNK (Dapagliflozin Propanediol [Farxiga] 10 MG Tablet) PO SCH (08:06)
[2022-06-09] MEDS: BREXPIPRAZOLE 1 MG PO SCH (08:06)
[2022-06-09] MEDS: HOME MED 1 EA UNK (Insulin Degludec [Tresiba Flextouch U-200] 200 UNIT/ML Insuln.Pen) SQ SCH (08:06)
[2022-06-09] MEDS: ONDANSETRON 4 MG/2 ML VIAL IV PRN (08:16)
[2022-06-09] MEDS: LOSARTAN POTASSIUM 50 MG TABLET PO SCH (08:17)
[2022-06-09] MEDS: ENOXAPARIN 40 MG/0.4 ML SQ SCH (08:17)
[2022-06-09] MEDS: ESCITALOPRAM 20 MG TAB PO SCH (08:17)
[2022-06-09] MEDS: METOPROLOL TAR 50 MG TAB PO SCH (08:17)
[2022-06-09 09:58] VITALS: TEMP 97.5
[2022-06-09] MEDS ORDERED: predniSONE 20 MG TAB PO ONE (12:00)
[2022-06-09 12:51] VITALS: BP 132/77
--- NOTE | 2022-06-10 19:56 | DS ---
Date of Discharge: 06/09/2022 Disposition: Discharged to go home. Physical Examination: HEENT: Unremarkable. Lungs: Clear to auscultation. Heart: Sounds normal. Abdomen: Soft. Bowel sounds normal. No guarding, rigidity, tenderness, distention. Extremities: No leg edema. Laboratory Data: Chemistry from yesterday: Sodium 139, potassium 4.7, chloride 113, bicarb 21, BUN 13, creatinine 0.64, glucose 365. Upon admission, white count 11.3, hemoglobin 16.7, platelets 237. Upon admission, sodium 134, potassium 3.9, chloride 99, bicarb 25, BUN 8, creatinine 0.98, glucose 4 39. AST 38, ALT 95, alkaline phosphatase 148. Hospital Course: This is a 57-year-old very pleasant female patient admitted to the hospital after s he came into office with complaints of abdominal pain, nausea, vomiting, and diarrhea. This is her t ypical presentation with acute exacerbation of Crohn disease, so she came into office. Her gastroent erologist, Dr. Shah, is out of town and patient was admitted to the hospital after I evaluated her for further evaluation and management of acute exacerbation of her Crohn disease. After her admissio n, she was started on clear liquid diet and IV antibiotics, Levaquin and metronidazole, and IV steroi d, Solu-Medrol 60 mg every 6 hours was started. Pain medication and nausea medication were given. F ingerstick blood sugar was ordered for monitoring and management of diabetes with sliding scale insul in. Overall, her condition improved during this hospitalization and we were able to discharge her to go back home in stable condition. The patient is planning to go to [facility] and she is moving as of June 11, 2022, and I did talk to her about finding an internal medicine physician as well as g astroenterologist in her new location and she has some family members in that new area who will yumiko t her in finding a new physician, but meanwhile, if she does not find any physician, then she will co ntinue to drive down to see me and her monitoring analyst, Dr. Shah. Final Diagnoses: 1.Crohn disease, with acute exacerbation. 2.Type 2 diabetes mellitus, uncontrolled. 3.Hypertension. 4.Mixed hyperlipidemia. 5.Abnormal liver function test. 6.Depression. Discharge Medications And Instructions: Continue all prior home medication except following changes: Tresiba insulin subcutaneous daily in the morning, take it as below, 20 units on June 10, 2022, 30 units on June 11, 2022, 40 units on June 12, 2022, 50 units on June 13, 2022, and then 60 units daily as of June 22, 2022, as her usual maintenance dose as the patient reported to me that prior to this hospital admission, she was taking Tresiba 60 units daily and her diabetes is being ma naged by her community outreach manager. Other new medications upon discharge, Levaquin 500 mg daily for 1 week; metronidazole 500 mg 3 times a day for 1 week; Phenergan 25 mg 4 times a day as needed for nausea, vomiting; and prednisone 10 mg, patient to take 2 tablets by mouth 2 times a day for 4 days, then 2 tablets daily for 4 days, then 1 tablet daily for 4 days, then half a tablet daily for 4 days, then stop, take it with food. CASPER/MODL Voice ID: [id number] Report ID: [id number]
== END 2022-06-09 13:37 | disposition home or self-care (01) | DRG 387 ==
LOC: 4TH 15:19
PROVIDERS: ADMIT Internal Medicine; ATTEND Internal Medicine
DX: K50.90 Crohn's disease, unspecified, without complications (principal); E11.65 Type 2 diabetes mellitus with hyperglycemia; I10 Essential (primary) hypertension; E78.2 Mixed hyperlipidemia; F32.A Depression, unspecified; R94.5 Abnormal results of liver function studies; Z88.8 Allergy status to other drugs, medicaments and biological substances; Z90.49 Acquired absence of other specified parts of digestive tract; Z90.710 Acquired absence of both cervix and uterus; Z20.822 Contact with and (suspected) exposure to COVID-19; Z82.49 Family history of ischemic heart disease and other diseases of the circulatory system; Z80.8 Family history of malignant neoplasm of other organs or systems
CPT/HCPCS: 36415; 80048; 80053; 82947; 83735; 85025; 87811; J1650; J1815; J2175; J2405; J2550; J2930; J3010; J7030; J7512